=== PATIENT | male | born 1990 | race Caucasian/White ===

== ENCOUNTER 2016-10-18 13:46 | Observation (INO) | payer OTHER ==
--- NOTE | 2016-10-18 14:11 | EDM.PDOC ---
ED HPI GENERAL MEDICAL PROBLEM - General Chief Complaint: Gastrointestinal Problem Stated Complaint: SICK Time Seen by Provider: 10/18/16 14:00 Source of Information: Reports: Patient History Limitations: Reports: No Limitations - History of Present Illness INITIAL COMMENTS - FREE TEXT/NARRATIVE: HISTORY AND PHYSICAL: History of present illness: [Patient comes to the emergency room complaining of diarrhea for the past 4 days and lower abdominal cramping. He returned home from vacation in the [place] on October 09. He was traveling with a large group, of which several others also had loose stools. Theris resolved after a couple of days, but the patient's continuous. He had some blood in his stool this morning. Feels a cramping sensation in his abdomen which she feels would be relieved with having a bowel movement but he has had to try to push to pass any stools for the past day. Denies fever and chills. Has a mild headache. Decreased appetite. No nausea or vomiting. No difficulty urinating or hematuria. No muscle or joint aches or pains. No chest pain shortness of breath or difficulty breathing. No cough. No recent illness or infection. Other than symptoms stated above he is feeling well. He has been afebrile. Is having pain with passing stools. Has been having a sensation of needing to defecate and has been trying to force out stool. This is causing lower abdominal pain. Does not take any medications regularly. Is otherwise well.] Review of systems: As per history of present illness and below otherwise all systems reviewed and negative. Past medical history: As per history of present illness and as reviewed below otherwise noncontributory. Surgical history: As per history of present illness and as reviewed below otherwise noncontributory. Social history: No reported history of drug or alcohol abuse. Family history: As per history of present illness and as reviewed below otherwise noncontributory. Physical exam: HEENT: Atraumatic, normocephalic. Oral mucous membranes moist. Throat clear. neck supple, nontender, no lymphadenopathy. Lungs: Clear to auscultation, breath sounds equal bilaterally. Heart: S1S2, regular rate and rhythm. Abdomen: Bowel sounds are normoactive throughout. Abdomen is soft and nondistended. Tender over his entire lower quadrant. Negative for masses guarding or rebound. Negative for costovertebral tenderness. Pelvis: Stable nontender. Genitourinary: Deferred. Rectal: Normal appearing sphincter, normal tone, no hemorrhoids. Guaiac- negative. No stool in colon. Extremities: Atraumatic. No cyanosis or edema to her lower legs. Neurovascular unremarkable. Neuro: Awake, alert, oriented. Motor and sensory unremarkable throughout. Exam nonfocal. Diagnostics: [CBC, CMP, UA, stool cultures, WBC's stool, C. difficile, amylase, lipase, Giardia, CT abdomen and pelvis with contrast] Therapeutics: [Cipro 400 mg IV, Dilaudid 1 mg IV 2, Zofran 4 mg IV, Flagyl 500 mg IV, 2 L normal saline at] Impression: [Colitis Abdominal pain] Plan: [Discussed with patient that CT abdomen and pelvis shows a mild colitis. Discussed the option of inpatient observation for IV fluids, continued pain management and IV antibiotics or discharged home with oral antibiotics. The patient requests hospital observation due to continued pain. This is reviewed with Dr. Henry Sen who agrees to accept patient for observation.] Definitive disposition and diagnosis as appropriate pending reevaluation and review of above. abdominal area Pain Score (Numeric/FACES): 5 - Related Data Allergies Allergy/AdvReac Type Severity Reaction Status Date / Time Penicillins Allergy Burning Verified 10/18/16 13:56 Home Meds: Home Meds oxyCODONE HCl/Acetaminophen [Percocet 5-325 mg Tablet] 1 each PO Q6HR #20 tablet 10/28/15 [Rx] Past Medical History HEENT History: Reports: None Cardiovascular History: Reports: None Respiratory History: Reports: None Gastrointestinal History: Reports: None Genitourinary History: Reports: None Musculoskeletal History: Reports: Back Pain, Chronic Neurological History: Reports: None Psychiatric History: Reports: None Endocrine/Metabolic History: Reports: None Hematologic History: Reports: None Immunologic History: Reports: None Oncologic (Cancer) History: Reports: None Dermatologic History: Reports: None - Infectious Disease History Infectious Disease History: Reports: None - Past Surgical History Head Surgeries/Procedures: Reports: None Musculoskeletal Surgical History: Reports: Other (See Below) Other Musculoskeletal Surgeries/Procedures:: back surgery. surgery to bilateral foot Social & Family History - Family History Family Medical History: Noncontributory - Tobacco Use Smoking Status *Q: Never Smoker - Caffeine Use Caffeine Use: Reports: Coffee - Alcohol Use Days Per Week of Alcohol Use: 2 Number of Drinks Per Day: 4 Total Drinks Per Week: 8 - Recreational Drug Use Recreational Drug Use: No ED ROS GENERAL - Review of Systems Review Of Systems: ROS reveals no pertinent complaints other than HPI. ED EXAM, GI/ABD - Physical Exam Exam: See Below Course - Vital Signs Last Recorded V/S: Last Vital Signs Temp 97.3 F 10/18/16 18:15 Pulse 64 10/18/16 18:15 Resp 18 10/18/16 18:15 BP 135/67 10/18/16 18:15 Pulse Ox 96 10/18/16 18:15 - Orders/Labs/Meds Orders: Active Orders 24 hr Category Date Time Status Abdomen Pelvis w Cont [CT] Stat Exams 10/18/16 15:56 Taken CULTURE STOOL + CAMPY+SHIGATOX [RM] Stat Lab 10/18/16 16:00 Results GIARDIA ANTIGEN BY IMMUNOASSAY [MREF] Stat Lab 10/18/16 15:59 Ordered Medication Orders Ciprofloxacin/Dextrose 400 mg/ (Premix) 200 mls @ 200 mls/hr IV Q12H JOSIE Last Admin: 10/18/16 18:50 Dose: 200 mls/hr Metronidazole 500 mg/ Premix 100 mls @ 100 mls/hr IV ONETIME ONE Stop: 10/18/16 19:23 Sodium Chloride (Normal Saline) 1,000 mls @ 999 mls/hr IV STAT ONE Stop: 10/18/16 19:25 Last Admin: 10/18/16 18:47 Dose: 999 mls/hr Labs: Laboratory Tests 10/18/16 10/18/16 10/18/16 Range/Units 14:12 14:12 14:12 WBC 7.84 (4.0-11.0) K/uL RBC 5.44 (4.50-5.90) M/uL Hgb 16.2 (13.0-17.0) g/dL Hct 46.4 (38.0-50.0) % MCV 85.3 (80.0-98.0) fL MCH 29.8 (27.0-32.0) pg MCHC 34.9 (31.0-37.0) g/dL RDW Std Deviation 42.6 (28.0-62.0) fl RDW Coeff of Nakia 14 (11.0-15.0) % Plt Count 177 (150-400) K/uL MPV 11.00 (7.40-12.00) fL Add Manual Diff YES Neutrophils % (Manual) 52 (48.0-80.0) % Band Neutrophils % 12 % Lymphocytes % (Manual) 23 (16.0-40.0) % Monocytes % (Manual) 12 (0.0-15.0) % Eosinophils % (Manual) 1 (0.0-7.0) % Nucleated RBC % 0.0 /100WBC Absolute Seg Neuts 4.1 Band Neutrophils # 0.9 Lymphocytes # (Manual) 1.8 Monocytes # (Manual) 0.9 Eosinophils # (Manual) 0.1 Nucleated RBCs # 0 K/uL Sodium 138 (136-146) mmol/L Potassium 4.4 (3.5-5.1) mmol/L Chloride 105 (98-110) mmol/L Carbon Dioxide 23 (21-31) mmol/L BUN 12 (6.0-23.0) mg/dL Creatinine 0.9 (0.6-1.5) mg/dL Est Cr Clr Drug Dosing TNP Estimated GFR (MDRD) > 60.0 ml/min Glucose 99 (60-110) mg/dL Calcium 9.6 (8.8-10.8) mg/dL Total Bilirubin 0.3 (0.1-1.5) mg/dL AST 206 H (5-40) IU/L ALT 150 H (8-54) IU/L Alkaline Phosphatase 49 (40-150) Total Protein 7.4 (6.0-8.0) g/dL Albumin 4.3 (3.5-5.0) g/dL Globulin 3.1 (2.0-3.5) g/dL Albumin/Globulin Ratio 1.4 (1.3-2.8) Amylase 30 (10-90) U/L Lipase < 9 (7-80) U/L Urine Color Urine Appearance Urine pH (5.0-8.0) Ur Specific [place] (1.001-1.035) Urine Protein (NEGATIVE) mg/dL Urine Glucose (UA) (NEGATIVE) mg/dL Urine Ketones (NEGATIVE) mg/dL Urine Occult Blood (NEGATIVE) Urine Nitrite (NEGATIVE) Urine Bilirubin (NEGATIVE) Urine Ictotest Urine Urobilinogen (<2.0) EU/dL Ur Leukocyte Esterase (NEGATIVE) Urine RBC (0-2/HPF) Urine WBC (0-5/HPF) Ur Epithelial Cells (NONE-FEW) Urine Bacteria (NEGATIVE) 10/18/16 Range/Units 14:30 WBC (4.0-11.0) K/uL RBC (4.50-5.90) M/uL Hgb (13.0-17.0) g/dL Hct (38.0-50.0) % MCV (80.0-98.0) fL MCH (27.0-32.0) pg MCHC (31.0-37.0) g/dL RDW Std Deviation (28.0-62.0) fl RDW Coeff of Nakia (11.0-15.0) % Plt Count (150-400) K/uL MPV (7.40-12.00) fL Add Manual Diff Neutrophils % (Manual) (48.0-80.0) % Band Neutrophils % % Lymphocytes % (Manual) (16.0-40.0) % Monocytes % (Manual) (0.0-15.0) % Eosinophils % (Manual) (0.0-7.0) % Nucleated RBC % /100WBC Absolute Seg Neuts Band Neutrophils # Lymphocytes # (Manual) Monocytes # (Manual) Eosinophils # (Manual) Nucleated RBCs # K/uL Sodium (136-146) mmol/L Potassium (3.5-5.1) mmol/L Chloride (98-110) mmol/L Carbon Dioxide (21-31) mmol/L BUN (6.0-23.0) mg/dL Creatinine (0.6-1.5) mg/dL Est Cr Clr Drug Dosing Estimated GFR (MDRD) ml/min Glucose (60-110) mg/dL Calcium (8.8-10.8) mg/dL Total Bilirubin (0.1-1.5) mg/dL AST (5-40) IU/L ALT (8-54) IU/L Alkaline Phosphatase (40-150) Total Protein (6.0-8.0) g/dL Albumin (3.5-5.0) g/dL Globulin (2.0-3.5) g/dL Albumin/Globulin Ratio (1.3-2.8) Amylase (10-90) U/L Lipase (7-80) U/L Urine Color YELLOW Urine Appearance CLEAR Urine pH 7.0 (5.0-8.0) Ur Specific [place] 1.015 (1.001-1.035) Urine Protein 30 (NEGATIVE) mg/dL Urine Glucose (UA) NEGATIVE (NEGATIVE) mg/dL Urine Ketones NEGATIVE (NEGATIVE) mg/dL Urine Occult Blood NEGATIVE (NEGATIVE) Urine Nitrite NEGATIVE (NEGATIVE) Urine Bilirubin SMALL H (NEGATIVE) Urine Ictotest NEGATIVE Urine Urobilinogen 0.2 (<2.0) EU/dL Ur Leukocyte Esterase NEGATIVE (NEGATIVE) Urine RBC 0-1 (0-2/HPF) Urine WBC NONE SEEN (0-5/HPF) Ur Epithelial Cells RARE (NONE-FEW) Urine Bacteria FEW (NEGATIVE) Meds: Medications Generic Name Dose Route Start Last Admin Trade Name Sada PRN Reason Stop Dose Admin Ciprofloxacin/Dextrose 400 mg/ 200 mls @ 200 mls/hr 10/18/16 18:30 10/18/16 18:50 Premix IV 200 mls/hr Q12H JOSIE Administration Metronidazole 500 mg/ Premix 100 mls @ 100 mls/hr 10/18/16 18:24 IV 10/18/16 19:23 ONETIME ONE Sodium Chloride 1,000 mls @ 999 mls/hr 10/18/16 18:25 10/18/16 18:47 Normal Saline IV 10/18/16 19:25 999 mls/hr STAT ONE Administration Discontinued Medications Generic Name Dose Route Start Last Admin Trade Name Sada PRN Reason Stop Dose Admin Hydromorphone HCl 1 mg 10/18/16 15:55 10/18/16 16:10 Dilaudid IV 10/18/16 15:56 1 mg ONETIME ONE Administration Hydromorphone HCl 1 mg 10/18/16 18:25 10/18/16 18:48 Dilaudid IV 10/18/16 18:26 1 mg ONETIME ONE Administration Sodium Chloride 1,000 mls @ 999 mls/hr 10/18/16 14:50 10/18/16 15:02 Normal Saline IV 10/18/16 15:50 999 mls/hr STAT ONE Administration Sodium Chloride 1,000 mls @ 999 mls/hr 10/18/16 15:55 10/18/16 16:11 Normal Saline IV 10/18/16 16:55 999 mls/hr STAT ONE Administration Iopamidol 100 ml 10/18/16 17:49 10/18/16 17:50 Isovue Multipack-370 (76%) IVPUSH 10/18/16 17:50 100 ml ONETIME STA Administration Ondansetron HCl 4 mg 10/18/16 15:55 10/18/16 16:11 Zofran IVPUSH 10/18/16 15:56 4 mg ONETIME ONE Administration Departure - Departure Time of Disposition: 18:15 Disposition: Home, Self-Care 01 Condition: Good Clinical Impression: Colitis - Discharge Information - My Orders Last 24 Hours: My Active Orders 10/18/16 15:56 Abdomen Pelvis w Cont [CT] Stat 10/18/16 15:59 GIARDIA ANTIGEN BY IMMUNOASSAY [MREF] Stat 10/18/16 16:00 CULTURE STOOL + CAMPY+SHIGATOX [RM] Stat - Assessment/Plan Last 24 Hours: My Active Orders 10/18/16 15:56 Abdomen Pelvis w Cont [CT] Stat 10/18/16 15:59 GIARDIA ANTIGEN BY IMMUNOASSAY [MREF] Stat 10/18/16 16:00 CULTURE STOOL + CAMPY+SHIGATOX [RM] Stat
[2016-10-18 14:37] LABS: CHLORIDE,CL 105 mmol/L (98-110); SODIUM,NA 138 mmol/L (136-146)
[2016-10-18] MEDS ORDERED: Sodium Chloride 0.9% 1,000 ML IV ONE ×3 (14:50→18:25)
[2016-10-18] MEDS ORDERED: HYDROmorphone 1 MG/ML Syringe IV ONE ×2 (15:55→18:25)
[2016-10-18] MEDS ORDERED: Ondansetron 4 MG/2 ML SDV IVPUSH ONE (15:55)
[2016-10-18] MEDS ORDERED: Iopamidol 755 MG/ML 500 ML Multipack Bottle IVPUSH STA (17:49)
[2016-10-18] MEDS ORDERED: metroNIDAZOLE/Normal Saline 500 MG in Premix Bag 1 BAG IV ONE (18:24)
[2016-10-18] MEDS: Ciprofloxacin in D5W 400 MG in Premix Bag 1 BAG IV SCH ×2 (18:50)
[2016-10-18] MEDS ORDERED: Famotidine 20 MG/2 ML SDV IVPUSH ONE (20:21)
--- NOTE | 2016-10-18 20:26 | PCM.HP ---
H&P History of Present Illness - General Admit Problem/Dx: Admission Diagnosis/Problem Admission Diagnosis/Problem Abdominal pain - History of Present Illness Initial Comments - Free Text/Narative: 25 yo male who had recent travel in [place]. His fellow travelers all developed abdominal cramping and diarrhea on the return to the [place]. However his symptoms have persisted and he reported severe abdominal cramping and blood diarrhea today. He was evaluated in the ED and note to have mild colitis on CT scan. abdominal area Pain Score (Numeric/FACES): 5 - Related Data Allergies/Adverse Reactions: Allergies Allergy/AdvReac Type Severity Reaction Status Date / Time Penicillins Allergy Burning Verified 10/18/16 13:56 Home Medications: Home Meds oxyCODONE HCl/Acetaminophen [Percocet 5-325 mg Tablet] 1 each PO Q6HR #20 tablet 10/28/15 [Rx] Past Medical History HEENT History: Reports: None Cardiovascular History: Reports: None Respiratory History: Reports: None Gastrointestinal History: Reports: None Genitourinary History: Reports: None Musculoskeletal History: Reports: Back Pain, Chronic Other Musculoskeletal History: 3 herniated discs and 1 bulging Neurological History: Reports: None Psychiatric History: Reports: None Endocrine/Metabolic History: Reports: None Hematologic History: Reports: None Immunologic History: Reports: None Oncologic (Cancer) History: Reports: None Dermatologic History: Reports: None - Infectious Disease History Infectious Disease History: Reports: None - Past Surgical History Head Surgeries/Procedures: Reports: None Musculoskeletal Surgical History: Reports: Other (See Below) Other Musculoskeletal Surgeries/Procedures:: back surgery. surgery to bilateral foot Social & Family History - Family History Family Medical History: Noncontributory Cardiac: Reports: CAD, [place], Other (See Below) Other Cardiac Family History: steven had triple bypass recently Respiratory: Reports: None Musculoskeletal: Reports: Connective Tissue Disease, Other (See Below) Other Musculoskeletal Family History: mother has Lupus Endocrine/Metabolic: Reports: Diabetes, type II - Tobacco Use Smoking Status *Q: Never Smoker - Caffeine Use Caffeine Use: Reports: Coffee - Alcohol Use Days Per Week of Alcohol Use: 2 Number of Drinks Per Day: 4 Total Drinks Per Week: 8 - Recreational Drug Use Recreational Drug Use: No H&P Review of Systems - Review of Systems: Review Of Systems: ROS reveals no pertinent complaints other than HPI. Exam - Exam Exam: See Below - Vital Signs Vital Signs: Last Vital Signs Temp 37.1 C 10/18/16 20:06 Pulse 63 10/18/16 20:06 Resp 18 10/18/16 20:06 BP 127/68 10/18/16 20:06 Pulse Ox 97 10/18/16 20:06 Weight: 93.6 kg - Exam General: Alert, Oriented, 4 HEENT: Mucosa Moist & [place] Neck: Supple Lungs: Clear to Auscultation, Normal Respiratory Effort Cardiovascular: Regular Rate, Regular Rhythm GI/Abdominal Exam: Normal Bowel Sounds, Soft, Non-Tender, No Organomegaly, No Distention Extremities: Normal Inspection, Normal Range of Motion, Non-Tender, No Pedal Edema, Normal Capillary Refill Skin: Warm, Dry, Intact - Patient Data Result Diagrams: 10/19/16 05:41 10/19/16 05:41 *Q Meaningful Use (ADM) - VTE *Q VTE Criteria *Q: - Stroke *Q Stroke Criteria *Q: - AMI *Q AMI Criteria *Q: Problem List Initiated/Reviewed/Updated: Yes Orders Last 24hrs: Active Orders 24 hr Category Date Time Status Antiembolic Devices [RC] PER UNIT ROUTINE Care 10/18/16 20:20 Ordered Intake and Output [RC] QSHIFT Care 10/18/16 20:19 Ordered Oxygen Therapy [RC] PRN Care 10/18/16 20:19 Ordered Up ad Rukhsana [RC] ASDIRECTED Care 10/18/16 20:19 Ordered VTE/DVT Education [RC] PER UNIT ROUTINE Care 10/18/16 20:19 Ordered Vital Signs [RC] Q4H Care 10/18/16 20:19 Ordered Clear Liquid Diet [DIET] Diet 10/18/16 Breakfast Ordered BASIC METABOLIC PANEL,BMP [CHEM] AM Lab 10/19/16 05:11 Ordered BASIC METABOLIC PANEL,BMP [CHEM] AM Lab 10/20/16 05:11 Ordered CBC WITH AUTO DIFF [HEME] AM Lab 10/19/16 05:11 Ordered CBC WITH AUTO DIFF [HEME] AM Lab 10/20/16 05:11 Ordered COMPREHENSIVE METABOLIC PN,CMP [CHEM] AM Lab 10/19/16 05:11 Ordered Ciprofloxacin in D5W [Cipro in D5W 400 MG/200 ML] 400 Med 10/18/16 18:30 Active mg Premix Bag 1 bag IV Q12H Morphine Med 10/18/16 20:21 Ordered 2 mg IVPUSH Q2H PRN Ondansetron [Zofran] Med 10/18/16 20:19 Ordered 4 mg IVPUSH Q4H PRN Sodium Chloride 0.9% @ 125 MLS/HR (1,000ml) Med 10/18/16 20:30 Ordered Sodium Chloride 0.9% [Normal Saline] 1,000 ml IV ASDIRECTED metroNIDAZOLE/Normal Saline [Flagyl 500 MG in NS 100 ML Med 10/19/16 04:00 Ordered ] 500 mg Premix Bag 1 bag IV Q8H Sequential Compression Device [OM.PC] Per Unit Routine Oth 10/18/16 20:20 Ordered Resuscitation Status Routine Resus Stat 10/18/16 20:19 Ordered Medication Orders Ciprofloxacin/Dextrose 400 mg/ (Premix) 200 mls @ 200 mls/hr IV Q12H JOSIE Last Admin: 10/18/16 18:50 Dose: 200 mls/hr Metronidazole 500 mg/ Premix 100 mls @ 100 mls/hr IV Q8H JOSIE Sodium Chloride (Normal Saline) 1,000 mls @ 125 mls/hr IV ASDIRECTED JOSIE Morphine Sulfate (Morphine) 2 mg IVPUSH Q2H PRN PRN Reason: Pain Ondansetron HCl (Zofran) 4 mg IVPUSH Q4H PRN PRN Reason: Nausea Assessment/Plan Comment:: 25 yo male with mild colitis and travelers diarrhea. Will treat with IV fluids , Ciprofloxacin and flagyl. Stool cultures have been collected.
[2016-10-18] MEDS: Morphine 2 MG/ML Syringe IVPUSH PRN ×2 (21:38→23:38)
[2016-10-18] MEDS: Sodium Chloride 0.9% 1,000 ML IV SCH (23:25)
[2016-10-19] MEDS: metroNIDAZOLE/Normal Saline 500 MG in Premix Bag 1 BAG IV SCH ×3 (03:45→20:16)
[2016-10-19] MEDS: Morphine 2 MG/ML Syringe IVPUSH PRN ×2 (03:57→08:07)
[2016-10-19] MEDS: Ciprofloxacin in D5W 400 MG in Premix Bag 1 BAG IV SCH ×4 (05:42→17:34)
[2016-10-19 06:44] LABS: CHLORIDE,CL 108 mmol/L (98-110); SODIUM,NA 140 mmol/L (136-146)
[2016-10-19] MEDS: Ondansetron 4 MG/2 ML SDV IVPUSH PRN ×2 (08:06→18:50)
[2016-10-19] MEDS: Morphine 4 MG/ML Syringe IVPUSH PRN ×4 (10:18→21:53)
[2016-10-19] MEDS: Sodium Chloride 0.9% 1,000 ML IV SCH ×2 (10:20→17:37)
--- NOTE | 2016-10-19 13:55 | CT ---
EXAM DATE: 10/18/16 PATIENT'S AGE: 25 Patient: KAY PINA Facility: [place], [place] Site . Site : 1990 Study: CT Abdomen/Pelvis [id number] 5:43:18 PM Ordering Physician: Doctor Farfan Final Report: INDICATION: Abdominal pain and diarrhea for 3 days. Bloody stool. TECHNIQUE: Volumetric helical scanning of the abdomen and pelvis was performed with 100 cc of Isovue 370 contrast material IV. Coronal and sagittal reconstructions were obtained. COMPARISON: None. FINDINGS: Mild circumferential wall thickening of the sigmoid colon and rectum is demonstrated, consistent with colitis. No pneumatosis, abscess, free fluid or free air is identified. The bowel is otherwise unremarkable The liver is unremarkable except for a 1 cm focus of mildly decreased attenuation in the right lobe, possibly hemangioma. No bile duct dilation is evident. The spleen, adrenal glands and pancreas are within normal limits. The kidneys are unremarkable. No lymphadenopathy is evident. The prostate is unremarkable The lung bases are clear. The heart is normal in size. IMPRESSION: 1. Mild colitis involving the rectum and sigmoid. No complication. 2. 1 cm low attenuation lesion in the right hepatic lobe, possibly hemangioma. Please note that all CT scans at this facility use dose modulation, iterative reconstruction, and/or weight-based dosing when appropriate to reduce radiation dose to as low as reasonably achievable. Dictated by Christopher Duran MD @ Oct 18 2016 6:00PM (Electronic Signature) Report Signed by Proxy. [facility]
[2016-10-19] MEDS: oxyCODONE 5 MG Tab PO PRN ×3 (14:41→23:58)
--- NOTE | 2016-10-19 17:45 | PCM.PN ---
- Review of Systems Systems Review Comment:: reporting abdominal pain, and has small bloody stool. - Patient Data Vitals - Most Recent: Last Vital Signs Temp 36.7 C 10/19/16 16:00 Pulse 51 L 10/19/16 16:00 Resp 16 10/19/16 16:00 BP 107/50 L 10/19/16 16:00 Pulse Ox 96 10/19/16 16:00 Weight - Most Recent: 93.6 kg I&O - Last 24 Hours: Intake & Output 10/19/16 10/19/16 10/19/16 06:59 14:59 22:59 Intake Total 940 1325 2505 Output Total 1550 2100 Balance -610 1325 405 Lab Results Last 24 Hours: Laboratory Results - last 24 hr 10/19/16 10/19/16 Range/Units 05:41 05:41 WBC 5.89 (4.0-11.0) K/uL RBC 4.58 (4.50-5.90) M/uL Hgb 13.1 (13.0-17.0) g/dL Hct 39.5 (38.0-50.0) % MCV 86.2 (80.0-98.0) fL MCH 28.6 (27.0-32.0) pg MCHC 33.2 (31.0-37.0) g/dL RDW Std Deviation 44.0 (28.0-62.0) fl RDW Coeff of Nakia 14 (11.0-15.0) % Plt Count 162 (150-400) K/uL MPV 10.50 (7.40-12.00) fL Neut % (Auto) 51.5 (48.0-80.0) % Lymph % (Auto) 27.0 (16.0-40.0) % [place] % (Auto) 19.5 H (0.0-15.0) % Eos % (Auto) 1.7 (0.0-7.0) % Baso % (Auto) 0.3 (0.0-1.5) % Neut # (Auto) 3.0 (1.4-5.7) K/uL Lymph # (Auto) 1.6 (0.6-2.4) K/uL [place] # (Auto) 1.2 H (0.0-0.8) K/uL Eos # (Auto) 0.1 (0.0-0.7) K/uL Baso # (Auto) 0.0 (0.0-0.1) K/uL Nucleated RBC % 0.0 /100WBC Nucleated RBCs # 0 K/uL Sodium 140 (136-146) mmol/L Potassium 4.0 (3.5-5.1) mmol/L Chloride 108 (98-110) mmol/L Carbon Dioxide 24 (21-31) mmol/L BUN 9 (6.0-23.0) mg/dL Creatinine 0.8 (0.6-1.5) mg/dL Est Cr Clr Drug Dosing TNP Estimated GFR (MDRD) > 60.0 ml/min Glucose 89 (60-110) mg/dL Calcium 8.7 L (8.8-10.8) mg/dL Total Bilirubin 0.3 (0.1-1.5) mg/dL AST 153 H (5-40) IU/L ALT 117 H (8-54) IU/L Alkaline Phosphatase 38 L (40-150) Total Protein 5.9 L (6.0-8.0) g/dL Albumin 3.6 (3.5-5.0) g/dL Globulin 2.3 (2.0-3.5) g/dL Albumin/Globulin Ratio 1.6 (1.3-2.8) Med Orders - Current: Current Medications Ciprofloxacin/Dextrose 400 mg/ (Premix) 200 mls @ 200 mls/hr IV Q12H [facility] Last Admin: 10/19/16 17:34 Dose: 200 mls/hr Metronidazole 500 mg/ Premix 100 mls @ 100 mls/hr IV Q8H [facility] Last Admin: 10/19/16 11:47 Dose: 100 mls/hr Sodium Chloride (Normal Saline) 1,000 mls @ 125 mls/hr IV ASDIRECTED [facility] Last Admin: 10/19/16 17:37 Dose: 125 mls/hr Morphine Sulfate (Morphine) 4 mg IVPUSH Q3H PRN PRN Reason: Pain Last Admin: 10/19/16 17:33 Dose: 4 mg Ondansetron HCl (Zofran) 4 mg IVPUSH Q4H PRN PRN Reason: Nausea Last Admin: 10/19/16 08:06 Dose: 4 mg Oxycodone HCl (Oxycodone) 5 mg PO Q4H PRN PRN Reason: Pain Last Admin: 10/19/16 14:41 Dose: 5 mg Discontinued Medications Famotidine (Pepcid) 20 mg IVPUSH ONETIME ONE Stop: 10/18/16 20:22 Last Admin: 10/18/16 21:56 Dose: 20 mg Hydromorphone HCl (Dilaudid) 1 mg IV ONETIME ONE Stop: 10/18/16 15:56 Last Admin: 10/18/16 16:10 Dose: 1 mg Hydromorphone HCl (Dilaudid) 1 mg IV ONETIME ONE Stop: 10/18/16 18:26 Last Admin: 10/18/16 18:48 Dose: 1 mg Sodium Chloride (Normal Saline) 1,000 mls @ 999 mls/hr IV STAT ONE Stop: 10/18/16 15:50 Last Admin: 10/18/16 15:02 Dose: 999 mls/hr Sodium Chloride (Normal Saline) 1,000 mls @ 999 mls/hr IV STAT ONE Stop: 10/18/16 16:55 Last Admin: 10/18/16 16:11 Dose: 999 mls/hr Metronidazole 500 mg/ Premix 100 mls @ 100 mls/hr IV ONETIME ONE Stop: 10/18/16 19:23 Last Admin: 10/18/16 20:10 Dose: 100 mls/hr Sodium Chloride (Normal Saline) 1,000 mls @ 999 mls/hr IV STAT ONE Stop: 10/18/16 19:25 Last Admin: 10/18/16 18:47 Dose: 999 mls/hr Iopamidol (Isovue Multipack-370 (76%)) 100 ml IVPUSH ONETIME STA Stop: 10/18/16 17:50 Last Admin: 10/18/16 17:50 Dose: 100 ml Morphine Sulfate (Morphine) 2 mg IVPUSH Q2H PRN PRN Reason: Pain Last Admin: 10/19/16 08:07 Dose: 2 mg Ondansetron HCl (Zofran) 4 mg IVPUSH ONETIME ONE Stop: 10/18/16 15:56 Last Admin: 10/18/16 16:11 Dose: 4 mg - Exam General: Alert, Oriented Lungs: Clear to Auscultation, Normal Respiratory Effort Cardiovascular: Regular Rate, Regular Rhythm GI/Abdominal Exam: Normal Bowel Sounds, Soft, Tender (mild in lower quadrants). No: Guarding, Rigid, Rebound Extremities: No Pedal Edema - Problem List Review Problem List Initiated/Reviewed/Updated: Yes - My Orders Last 24 Hours: My Active Orders 10/18/16 20:19 Intake and Output [RC] QSHIFT Oxygen Therapy [RC] PRN Up ad Rukhsana [RC] ASDIRECTED VTE/DVT Education [RC] PER UNIT ROUTINE Vital Signs [RC] Q4H Ondansetron [Zofran] 4 mg IVPUSH Q4H PRN Resuscitation Status Routine 10/18/16 20:20 Antiembolic Devices [RC] PER UNIT ROUTINE Sequential Compression Device [OM.PC] Per Unit Routine 10/18/16 20:30 Sodium Chloride 0.9% [Normal Saline] 1,000 ml IV ASDIRECTED 10/19/16 04:00 metroNIDAZOLE/Normal Saline [Flagyl 500 MG in NS 100 ML] 500 mg Premix Bag 1 bag IV Q8H 10/20/16 05:11 BASIC METABOLIC PANEL,BMP [CHEM] AM CBC WITH AUTO DIFF [HEME] AM - Plan Plan:: 25 yo male with mild colitis and travelers diarrhea. Will continue IV fluids, and prn morphine for pain. Will continue Ciprofloxacin and Flagyl. Stool cultures have been collected. Discharge pending improvement in abdominal pain.
[2016-10-20] MEDS: Morphine 4 MG/ML Syringe IVPUSH PRN ×5 (03:43→23:01)
[2016-10-20] MEDS: Sodium Chloride 0.9% 1,000 ML IV SCH ×2 (03:47→15:31)
[2016-10-20] MEDS: metroNIDAZOLE/Normal Saline 500 MG in Premix Bag 1 BAG IV SCH ×3 (03:51→20:12)
[2016-10-20] MEDS: oxyCODONE 5 MG Tab PO PRN ×5 (05:48→21:36)
[2016-10-20] MEDS: Ciprofloxacin in D5W 400 MG in Premix Bag 1 BAG IV SCH ×4 (05:49→17:40)
[2016-10-20 06:24] LABS: CHLORIDE,CL 106 mmol/L (98-110); SODIUM,NA 142 mmol/L (136-146)
--- NOTE | 2016-10-20 06:52 | PCM.PN ---
- Review of Systems Systems Review Comment:: patient reports abdominal pain contolled with IV pain medications is anxious about discharge today - Patient Data Vitals - Most Recent: Last Vital Signs Temp 36.9 C 10/20/16 00:00 Pulse 54 L 10/20/16 00:00 Resp 18 10/20/16 00:00 BP 117/44 L 10/20/16 00:00 Pulse Ox 96 10/20/16 00:00 Weight - Most Recent: 93.6 kg I&O - Last 24 Hours: Intake & Output 10/19/16 10/19/16 10/20/16 14:59 22:59 06:59 Intake Total 1325 2605 1000 Output Total 2100 Balance 3914 121 9508 Lab Results Last 24 Hours: Laboratory Results - last 24 hr 10/20/16 10/20/16 Range/Units 05:50 05:50 WBC 5.86 (4.0-11.0) K/uL RBC 4.90 (4.50-5.90) M/uL Hgb 14.0 (13.0-17.0) g/dL Hct 42.9 (38.0-50.0) % MCV 87.6 (80.0-98.0) fL MCH 28.6 (27.0-32.0) pg MCHC 32.6 (31.0-37.0) g/dL RDW Std Deviation 44.5 (28.0-62.0) fl RDW Coeff of Nakia 14 (11.0-15.0) % Plt Count 170 (150-400) K/uL MPV 10.10 (7.40-12.00) fL Neut % (Auto) 51.1 (48.0-80.0) % Lymph % (Auto) 31.7 (16.0-40.0) % Pender % (Auto) 15.0 (0.0-15.0) % Eos % (Auto) 1.9 (0.0-7.0) % Baso % (Auto) 0.3 (0.0-1.5) % Neut # (Auto) 3.0 (1.4-5.7) K/uL Lymph # (Auto) 1.9 (0.6-2.4) K/uL Pender # (Auto) 0.9 H (0.0-0.8) K/uL Eos # (Auto) 0.1 (0.0-0.7) K/uL Baso # (Auto) 0.0 (0.0-0.1) K/uL Nucleated RBC % 0.0 /100WBC Nucleated RBCs # 0 K/uL Sodium 142 (136-146) mmol/L Potassium 4.3 (3.5-5.1) mmol/L Chloride 106 (98-110) mmol/L Carbon Dioxide 29 (21-31) mmol/L BUN 11 (6.0-23.0) mg/dL Creatinine 0.9 (0.6-1.5) mg/dL Est Cr Clr Drug Dosing TNP Estimated GFR (MDRD) > 60.0 ml/min Glucose 90 (60-110) mg/dL Calcium 9.1 (8.8-10.8) mg/dL Med Orders - Current: Current Medications Ciprofloxacin/Dextrose 400 mg/ (Premix) 200 mls @ 200 mls/hr IV Q12H [facility] Last Admin: 10/20/16 05:49 Dose: 200 mls/hr Metronidazole 500 mg/ Premix 100 mls @ 100 mls/hr IV Q8H [facility] Last Admin: 10/20/16 03:51 Dose: 100 mls/hr Sodium Chloride (Normal Saline) 1,000 mls @ 125 mls/hr IV ASDIRECTED [facility] Last Admin: 10/20/16 03:47 Dose: 125 mls/hr Morphine Sulfate (Morphine) 4 mg IVPUSH Q3H PRN PRN Reason: Pain Last Admin: 10/20/16 03:43 Dose: 4 mg Ondansetron HCl (Zofran) 4 mg IVPUSH Q4H PRN PRN Reason: Nausea Last Admin: 10/19/16 18:50 Dose: 4 mg Oxycodone HCl (Oxycodone) 5 mg PO Q4H PRN PRN Reason: Pain Last Admin: 10/20/16 05:48 Dose: 5 mg Discontinued Medications Famotidine (Pepcid) 20 mg IVPUSH ONETIME ONE Stop: 10/18/16 20:22 Last Admin: 10/18/16 21:56 Dose: 20 mg Hydromorphone HCl (Dilaudid) 1 mg IV ONETIME ONE Stop: 10/18/16 15:56 Last Admin: 10/18/16 16:10 Dose: 1 mg Hydromorphone HCl (Dilaudid) 1 mg IV ONETIME ONE Stop: 10/18/16 18:26 Last Admin: 10/18/16 18:48 Dose: 1 mg Sodium Chloride (Normal Saline) 1,000 mls @ 999 mls/hr IV STAT ONE Stop: 10/18/16 15:50 Last Admin: 10/18/16 15:02 Dose: 999 mls/hr Sodium Chloride (Normal Saline) 1,000 mls @ 999 mls/hr IV STAT ONE Stop: 10/18/16 16:55 Last Admin: 10/18/16 16:11 Dose: 999 mls/hr Metronidazole 500 mg/ Premix 100 mls @ 100 mls/hr IV ONETIME ONE Stop: 10/18/16 19:23 Last Admin: 10/18/16 20:10 Dose: 100 mls/hr Sodium Chloride (Normal Saline) 1,000 mls @ 999 mls/hr IV STAT ONE Stop: 10/18/16 19:25 Last Admin: 10/18/16 18:47 Dose: 999 mls/hr Iopamidol (Isovue Multipack-370 (76%)) 100 ml IVPUSH ONETIME STA Stop: 10/18/16 17:50 Last Admin: 10/18/16 17:50 Dose: 100 ml Morphine Sulfate (Morphine) 2 mg IVPUSH Q2H PRN PRN Reason: Pain Last Admin: 10/19/16 08:07 Dose: 2 mg Ondansetron HCl (Zofran) 4 mg IVPUSH ONETIME ONE Stop: 10/18/16 15:56 Last Admin: 10/18/16 16:11 Dose: 4 mg - Exam General: Alert, Oriented Lungs: Clear to Auscultation, Normal Respiratory Effort Cardiovascular: Regular Rate, Regular Rhythm GI/Abdominal Exam: Normal Bowel Sounds, Soft, No Distention, Tender (mild tenderness to deep palpation) Extremities: Normal Inspection, Non-Tender, No Pedal Edema - Problem List Review Problem List Initiated/Reviewed/Updated: Yes - Plan Plan:: 25 yo male with mild colitis and travelers diarrhea. Will continue IV fluids, will switch to PO pain medication. Will continue Ciprofloxacin and Flagyl. Stool cultures have been collected. Anticipate discharge home tomorrow.
[2016-10-21] MEDS: Sodium Chloride 0.9% 1,000 ML IV SCH (01:38)
[2016-10-21] MEDS: oxyCODONE 5 MG Tab PO PRN ×3 (01:39→10:10)
[2016-10-21] MEDS: metroNIDAZOLE/Normal Saline 500 MG in Premix Bag 1 BAG IV SCH (03:15)
[2016-10-21] MEDS: Ciprofloxacin in D5W 400 MG in Premix Bag 1 BAG IV SCH ×2 (05:46)
[2016-10-21 06:12] LABS: CHLORIDE,CL 105 mmol/L (98-110); SODIUM,NA 137 mmol/L (136-146)
[2016-10-21 08:14] VITALS: BP 106/48
--- NOTE | 2016-10-21 10:55 | PCM.DCSUM1 ---
Discharge Summary - Discharge Data Discharge Date: 10/21/16 Discharge Disposition: Home, Self-Care 01 Condition: Good - Patient Summary/Data Hospital Course: Hospital diagnosis Salmonella colitis Hospital course: 25 yo male who presented with abdominal cramping and bloody diarrhea. He was recently traveling in the [place] and most of his travel companions have had same illness. His started once he returned to the [place] after most of his fellow travelers symptoms had resolved. He had a CT scan showing mild colitis of the sigmoid and rectum. He was treated with IV fluids, morphine, ciprofloxacin and Flagyl for four days. His stool cultures were grew out Salmonella. Today he is tolerating an oral diet and agreeable to discharge. He will be discharged on Ciprofloxacin 500mg BID for four more days. He has a follow up appointment at [place] [facility] on October 23. - Patient Instructions Diet: Usual Diet as Tolerated Activity: As Tolerated - Discharge Plan Prescriptions/Med Rec: oxyCODONE 5 mg PO Q6HR PRN #5 tablet PRN Reason: Pain Ciprofloxacin HCl [Cipro] 500 mg PO BID #8 tablet Home Medications: Home Meds oxyCODONE HCl/Acetaminophen [Percocet 5-325 mg Tablet] 1 each PO Q6HR #20 tablet 10/28/15 [Rx] Ciprofloxacin HCl [Cipro] 500 mg PO BID #8 tablet 10/21/16 [Rx] oxyCODONE 5 mg PO Q6HR PRN #5 tablet 10/21/16 [Rx] Referrals: Josselyn Meier NP [Ordering Only Provider] - 10/23/16 10:30 am - Patient Data Vitals - Most Recent: Last Vital Signs Temp 36.7 C 10/21/16 08:00 Pulse 52 L 10/21/16 08:00 Resp 22 H 10/21/16 08:00 BP 106/48 L 10/21/16 08:00 Pulse Ox 95 10/21/16 08:00 Weight - Most Recent: 93.6 kg I&O - Last 24 hours: Intake & Output 10/20/16 10/21/16 10/21/16 22:59 06:59 14:59 Intake Total 1100 2300 Output Total 2600 Balance 1100 -300 Lab Results - Last 24 hrs: Laboratory Results - last 24 hr 10/21/16 10/21/16 Range/Units 05:13 05:13 WBC 5.48 (4.0-11.0) K/uL RBC 4.88 (4.50-5.90) M/uL Hgb 14.0 (13.0-17.0) g/dL Hct 41.4 (38.0-50.0) % MCV 84.8 (80.0-98.0) fL MCH 28.7 (27.0-32.0) pg MCHC 33.8 (31.0-37.0) g/dL RDW Std Deviation 41.5 (28.0-62.0) fl RDW Coeff of Nakia 13 (11.0-15.0) % Plt Count 201 (150-400) K/uL MPV 10.70 (7.40-12.00) fL Neut % (Auto) 52.7 (48.0-80.0) % Lymph % (Auto) 30.3 (16.0-40.0) % [place] % (Auto) 15.1 H (0.0-15.0) % Eos % (Auto) 1.5 (0.0-7.0) % Baso % (Auto) 0.4 (0.0-1.5) % Neut # (Auto) 2.9 (1.4-5.7) K/uL Lymph # (Auto) 1.7 (0.6-2.4) K/uL [place]gs # (Auto) 0.8 (0.0-0.8) K/uL Eos # (Auto) 0.1 (0.0-0.7) K/uL Baso # (Auto) 0.0 (0.0-0.1) K/uL Nucleated RBC % 0.0 /100WBC Nucleated RBCs # 0 K/uL Sodium 137 (136-146) mmol/L Potassium 4.1 (3.5-5.1) mmol/L Chloride 105 (98-110) mmol/L Carbon Dioxide 24 (21-31) mmol/L BUN 11 (6.0-23.0) mg/dL Creatinine 0.9 (0.6-1.5) mg/dL Est Cr Clr Drug Dosing TNP Estimated GFR (MDRD) > 60.0 ml/min Glucose 85 (60-110) mg/dL Calcium 8.7 L (8.8-10.8) mg/dL Total Bilirubin 0.3 (0.1-1.5) mg/dL AST 91 H (5-40) IU/L ALT 103 H (8-54) IU/L Alkaline Phosphatase 43 (40-150) Total Protein 5.9 L (6.0-8.0) g/dL Albumin 3.8 (3.5-5.0) g/dL Globulin 2.1 (2.0-3.5) g/dL Albumin/Globulin Ratio 1.8 (1.3-2.8) Med Orders - Current: Current Medications Ciprofloxacin/Dextrose 400 mg/ (Premix) 200 mls @ 200 mls/hr IV Q12H [facility] Last Admin: 10/21/16 05:46 Dose: 200 mls/hr Metronidazole 500 mg/ Premix 100 mls @ 100 mls/hr IV Q8H [facility] Last Admin: 10/21/16 03:15 Dose: 100 mls/hr Sodium Chloride (Normal Saline) 1,000 mls @ 125 mls/hr IV ASDIRECTED [facility] Last Admin: 10/21/16 01:38 Dose: 125 mls/hr Morphine Sulfate (Morphine) 4 mg IVPUSH Q3H PRN PRN Reason: Pain Last Admin: 10/20/16 23:01 Dose: 4 mg Ondansetron HCl (Zofran) 4 mg IVPUSH Q4H PRN PRN Reason: Nausea Last Admin: 10/19/16 18:50 Dose: 4 mg Oxycodone HCl (Oxycodone) 10 mg PO Q4H PRN PRN Reason: Abdominal Pain Last Admin: 10/21/16 10:10 Dose: 10 mg Discontinued Medications Famotidine (Pepcid) 20 mg IVPUSH ONETIME ONE Stop: 10/18/16 20:22 Last Admin: 10/18/16 21:56 Dose: 20 mg Hydromorphone HCl (Dilaudid) 1 mg IV ONETIME ONE Stop: 10/18/16 15:56 Last Admin: 10/18/16 16:10 Dose: 1 mg Hydromorphone HCl (Dilaudid) 1 mg IV ONETIME ONE Stop: 10/18/16 18:26 Last Admin: 10/18/16 18:48 Dose: 1 mg Sodium Chloride (Normal Saline) 1,000 mls @ 999 mls/hr IV STAT ONE Stop: 10/18/16 15:50 Last Admin: 10/18/16 15:02 Dose: 999 mls/hr Sodium Chloride (Normal Saline) 1,000 mls @ 999 mls/hr IV STAT ONE Stop: 10/18/16 16:55 Last Admin: 10/18/16 16:11 Dose: 999 mls/hr Metronidazole 500 mg/ Premix 100 mls @ 100 mls/hr IV ONETIME ONE Stop: 10/18/16 19:23 Last Admin: 10/18/16 20:10 Dose: 100 mls/hr Sodium Chloride (Normal Saline) 1,000 mls @ 999 mls/hr IV STAT ONE Stop: 10/18/16 19:25 Last Admin: 10/18/16 18:47 Dose: 999 mls/hr Iopamidol (Isovue Multipack-370 (76%)) 100 ml IVPUSH ONETIME STA Stop: 10/18/16 17:50 Last Admin: 10/18/16 17:50 Dose: 100 ml Morphine Sulfate (Morphine) 2 mg IVPUSH Q2H PRN PRN Reason: Pain Last Admin: 10/19/16 08:07 Dose: 2 mg Ondansetron HCl (Zofran) 4 mg IVPUSH ONETIME ONE Stop: 10/18/16 15:56 Last Admin: 10/18/16 16:11 Dose: 4 mg Oxycodone HCl (Oxycodone) 5 mg PO Q4H PRN PRN Reason: Pain Last Admin: 10/20/16 17:41 Dose: 5 mg *Q Meaningful Use (DIS) - VTE *Q VTE Criteria *Q: - Stroke *Q Stroke Criteria *Q: - AMI *Q AMI Criteria *Q:
[2016-10-21] MEDS ORDERED: Pantoprazole 40 MG Tab.CR PO SCH (12:15)
== END 2016-10-21 12:15 | disposition home or self-care (01) ==
LOC: MW.ED 13:46 → MW.MS 18:23
PROVIDERS: ADMIT Internal Medicine; ATTEND Internal Medicine
DX: A04.8 Other specified bacterial intestinal infections (principal); A02.8 Other specified salmonella infections; Z88.0 Allergy status to penicillin; Z98.890 Other specified postprocedural states
CPT/HCPCS: 36415; 74177; 80048; 80053; 81001; 82150; 83630; 83690; 85025; 87046; 87324; 87329; 96361; 96365; 96366; 96367; 96375; 96376; 99285; A9270; G0378; J0744; J1170; J2270; J2405; J7040; Q9967; 87077; 87899; 99283

== ENCOUNTER 2016-10-23 23:38 | Emergency (ER) | payer OTHER ==
[2016-10-23] MEDS ORDERED: Sodium Chloride 0.9% 2,000 ML IV ONE (23:44)
[2016-10-23] MEDS ORDERED: Ondansetron 4 MG/2 ML SDV IVPUSH ONE (23:44)
--- NOTE | 2016-10-23 23:47 | EDM.PDOC ---
ED HPI GENERAL MEDICAL PROBLEM - General Stated Complaint: FEVER Time Seen by Provider: 10/23/16 23:44 - History of Present Illness INITIAL COMMENTS - FREE TEXT/NARRATIVE: HISTORY AND PHYSICAL: History of present illness: Patient 25-year-old white male presents with a concern of dizziness and near syncope he was recently hospitalized 4 days for Salmonella is currently on ciprofloxacin he states he had some abdominal cramping in the bathroom felt weak and then had this near syncopal event. He's had nausea but no vomiting. Denies fever chills Review of systems: As per history of present illness and below otherwise all systems reviewed and negative. Past medical history: As per history of present illness and as reviewed below otherwise noncontributory. Surgical history: As per history of present illness and as reviewed below otherwise noncontributory. Social history: No reported history of drug or alcohol abuse. Family history: As per history of present illness and as reviewed below otherwise noncontributory. Physical exam: HEENT: Atraumatic, normocephalic, pupils reactive, negative for conjunctival pallor or scleral icterus, mucous membranes dry, throat clear, neck supple, nontender, trachea midline. Lungs: Clear to auscultation, breath sounds equal bilaterally, chest nontender. Heart: S1S2, regular, negative for clicks, rubs, or JVD. Abdomen: Soft, nondistended, nontender. Negative for masses or hepatosplenomegaly. Negative for costovertebral tenderness. Pelvis: Stable nontender. Genitourinary: Deferred. Rectal: Deferred. Extremities: Atraumatic, negative for cords or calf pain. Neurovascular unremarkable. Neuro: Awake, alert, oriented. Cranial nerves II through XII unremarkable. Cerebellum unremarkable. Motor and sensory unremarkable throughout. Exam nonfocal. Diagnostics: CBC CMP EKG orthostatics Therapeutics: Normal saline 2 L bolus Zofran 4 mg IV Impression: #1 history of Salmonella #2 near syncope Definitive disposition and diagnosis as appropriate pending reevaluation and review of above. - Related Data Allergies Allergy/AdvReac Type Severity Reaction Status Date / Time Penicillins Allergy Burning Verified 10/23/16 23:45 Home Meds: Home Meds oxyCODONE HCl/Acetaminophen [Percocet 5-325 mg Tablet] 1 each PO Q6HR #20 tablet 10/28/15 [Rx] Ciprofloxacin HCl [Cipro] 500 mg PO BID #8 tablet 10/21/16 [Rx] oxyCODONE 5 mg PO Q6HR PRN #5 tablet 10/21/16 [Rx] Past Medical History HEENT History: Reports: None Cardiovascular History: Reports: None Respiratory History: Reports: None Gastrointestinal History: Reports: None Genitourinary History: Reports: None Musculoskeletal History: Reports: Back Pain, Chronic Other Musculoskeletal History: 3 herniated discs and 1 bulging Neurological History: Reports: None Psychiatric History: Reports: None Endocrine/Metabolic History: Reports: None Hematologic History: Reports: None Immunologic History: Reports: None Oncologic (Cancer) History: Reports: None Dermatologic History: Reports: None - Infectious Disease History Infectious Disease History: Reports: None - Past Surgical History Head Surgeries/Procedures: Reports: None Musculoskeletal Surgical History: Reports: Other (See Below) Other Musculoskeletal Surgeries/Procedures:: back surgery. surgery to bilateral foot Social & Family History - Family History Family Medical History: Noncontributory Cardiac: Reports: CAD, [place], Other (See Below) Other Cardiac Family History: casspa had triple bypass recently Respiratory: Reports: None Musculoskeletal: Reports: Connective Tissue Disease, Other (See Below) Other Musculoskeletal Family History: mother has Lupus Endocrine/Metabolic: Reports: Diabetes, type II - Tobacco Use Smoking Status *Q: Never Smoker - Caffeine Use Caffeine Use: Reports: Coffee - Alcohol Use Days Per Week of Alcohol Use: 2 Number of Drinks Per Day: 4 Total Drinks Per Week: 8 - Recreational Drug Use Recreational Drug Use: No ED ROS GENERAL - Review of Systems Review Of Systems: ROS reveals no pertinent complaints other than HPI. ED EXAM, GENERAL - Physical Exam Exam: See Below (See dictated) Course - Vital Signs Last Recorded V/S: Last Vital Signs Temp 36.6 C 10/23/16 23:46 Pulse 61 10/24/16 00:15 Resp 17 10/24/16 00:15 BP 126/63 10/24/16 00:15 Pulse Ox 95 10/24/16 00:15 Orthostatic Blood Pressure [ 146/88 Standing] Orthostatic Blood Pressure [ 135/76 Sitting] Orthostatic Blood Pressure [ 126/63 Supine] - Orders/Labs/Meds Orders: Active Orders 24 hr Category Date Time Status EKG Documentation Completion [RC] STAT Care 10/23/16 23:44 Active Sodium Chloride 0.9% [Normal Saline] 2,000 ml Med 10/23/16 23:44 Active IV .Bolus Medication Orders Sodium Chloride (Normal Saline) 2,000 mls @ 999 mls/hr IV .Bolus ONE Stop: 10/24/16 01:44 Last Admin: 10/23/16 23:53 Dose: 999 mls/hr Labs: Laboratory Tests 10/24/16 10/24/16 Range/Units 00:01 00:01 WBC 8.01 (4.0-11.0) K/uL RBC 5.49 (4.50-5.90) M/uL Hgb 15.9 (13.0-17.0) g/dL Hct 45.7 (38.0-50.0) % MCV 83.2 (80.0-98.0) fL MCH 29.0 (27.0-32.0) pg MCHC 34.8 (31.0-37.0) g/dL RDW Std Deviation 40.7 (28.0-62.0) fl RDW Coeff of Nakia 14 (11.0-15.0) % Plt Count 273 (150-400) K/uL MPV 10.40 (7.40-12.00) fL Neut % (Auto) 51.9 (48.0-80.0) % Lymph % (Auto) 33.0 (16.0-40.0) % [place]cdowell % (Auto) 12.9 (0.0-15.0) % Eos % (Auto) 1.7 (0.0-7.0) % Baso % (Auto) 0.5 (0.0-1.5) % Neut # (Auto) 4.2 (1.4-5.7) K/uL Lymph # (Auto) 2.6 H (0.6-2.4) K/uL Mcdowell # (Auto) 1.0 H (0.0-0.8) K/uL Eos # (Auto) 0.1 (0.0-0.7) K/uL Baso # (Auto) 0.0 (0.0-0.1) K/uL Nucleated RBC % 0.0 /100WBC Nucleated RBCs # 0 K/uL Sodium 137 (136-146) mmol/L Potassium 3.9 (3.5-5.1) mmol/L Chloride 103 (98-110) mmol/L Carbon Dioxide 24 (21-31) mmol/L BUN 14 (6.0-23.0) mg/dL Creatinine 1.0 (0.6-1.5) mg/dL Est Cr Clr Drug Dosing 131.29 mL/min Estimated GFR (MDRD) > 60.0 ml/min Glucose 124 H (60-110) mg/dL Calcium 9.9 (8.8-10.8) mg/dL Total Bilirubin 0.3 (0.1-1.5) mg/dL AST 50 H (5-40) IU/L ALT 112 H (8-54) IU/L Alkaline Phosphatase 51 (40-150) Total Protein 7.3 (6.0-8.0) g/dL Albumin 4.5 (3.5-5.0) g/dL Globulin 2.8 (2.0-3.5) g/dL Albumin/Globulin Ratio 1.6 (1.3-2.8) Meds: Medications Generic Name Dose Route Start Last Admin Trade Name Freq PRN Reason Stop Dose Admin Sodium Chloride 2,000 mls @ 999 mls/hr 10/23/16 23:44 10/23/16 23:53 Normal Saline IV 10/24/16 01:44 999 mls/hr .Bolus ONE Administration Discontinued Medications Generic Name Dose Route Start Last Admin Trade Name Freq PRN Reason Stop Dose Admin Ondansetron HCl 4 mg 10/23/16 23:44 10/23/16 23:53 Zofran IVPUSH 10/23/16 23:45 4 mg ONETIME ONE Administration Departure - Departure Time of Disposition: 00:39 Disposition: Home, Self-Care 01 Condition: Good Clinical Impression: Salmonellosis, Near syncope, Dehydration - Discharge Information Referrals: PCP,None [Primary Care Provider] - Additional Instructions: The following information is given to patients seen in the emergency department who are being discharged to home. This information is to outline your options for follow-up care. We provide all patients seen in our emergency department with a follow-up referral. The need for follow-up, as well as the timing and circumstances, are variable depending upon the specifics of your emergency department visit. If you don't have a primary care physician on staff, we will provide you with a referral. We always advise you to contact your personal physician following an emergency department visit to inform them of the circumstance of the visit and for follow-up with them and/or the need for any referrals to a consulting specialist. The emergency department will also refer you to a specialist when appropriate. This referral assures that you have the opportunity for followup care with a specialist. All of these measure are taken in an effort to provide you with optimal care, which includes your followup. Under all circumstances we always encourage you to contact your private physician who remains a resource for coordinating your care. When calling for followup care, please make the office aware that this follow-up is from your recent emergency room visit. If for any reason you are refused follow-up, please contact the [facility] emergency department at and asked to speak to the emergency department charge nurse. Continue current medications push fluids follow primary medical doctor 1-2 days return as needed as discussed - My Orders Last 24 Hours: My Active Orders 10/23/16 23:44 EKG Documentation Completion [RC] STAT Sodium Chloride 0.9% [Normal Saline] 2,000 ml IV .Bolus - Assessment/Plan Last 24 Hours: My Active Orders 10/23/16 23:44 EKG Documentation Completion [RC] STAT Sodium Chloride 0.9% [Normal Saline] 2,000 ml IV .Bolus
[2016-10-24 00:35] LABS: CHLORIDE,CL 103 mmol/L (98-110); SODIUM,NA 137 mmol/L (136-146)
[2016-10-24 01:36] VITALS: BP 135/70
== END 2016-10-24 01:37 | disposition home or self-care (01) ==
LOC: MW.ED 23:38
DX: R55 Syncope and collapse (principal); E86.0 Dehydration; A02.0 Salmonella enteritis; E11.9 Type 2 diabetes mellitus without complications; Z88.0 Allergy status to penicillin
CPT/HCPCS: 80053; 85025; 93005; 96361; 96374; 99284; J2405; J7040; 99283

== ENCOUNTER 2017-03-18 12:12 | Day surgery (SDC) | payer OTHER ==
[~2017-03-18 12:12] MED LIST: Betamethasone Acetate/Betamethasone Sod Phosphate 30 MG/5 ML MDV ONE; Iopamidol 408 MG/ML 50 ML SDV ONE; Lidocaine 2% 5 ML SDV ONE; Ropivacaine 0.2% 2 MG/ML 20 ML SDV ONE
[2017-03-18] MEDS ORDERED: Ropivacaine 0.5% 5 MG/ML 30 ML SDV ONE (13:50)
--- NOTE | 2017-03-18 19:24 | OR ---
SURGEON: Fallon Garcia D.O. DATE OF PROCEDURE: 03/18/2017 OR STAFF PRESENT: 1. Wing Blackburn. 2. Carlos Forrester RN. 3. Wing Damon RN. 4. safe technician. WOUND CLASSIFICATION: I. PREOPERATIVE DIAGNOSES: 1. Lumbar degenerative disk disease. 2. Chronic low back pain. POSTOPERATIVE DIAGNOSES: 1. Lumbar degenerative disk disease. 2. Chronic low back pain. PROCEDURE PERFORMED: 1. Interlaminar epidural steroid injection at L4-5. 2. Fluoroscopic guidance for needle placement. 3. Local with oral Valium for sedation. SCREENING QUESTIONS: The patient answered "no" to all of the following questions: 1. Are you allergic to latex? 2. Do you have a bleeding disorder? 3. Do you have any current local or systemic infections? 4. Are you taking any anti-inflammatories or blood thinners? 5. Do you have any joint replacements, heart valve replacements, or a pacemaker? DESCRIPTION OF PROCEDURE: The patient had the procedure thoroughly explained including all possible risks, benefits and alternatives. Consent was signed in my clinic indicating understanding and willingness to proceed. The patient presented to [facility] and was escorted to the dressing room to disrobe and change into a hospital gown. Preoperative vital signs were taken and stable. The patient reported that Valium was taken prior to the procedure. The patient was brought back to the procedure room and placed in the prone position on the procedure room table. A pillow was placed under the hips in order to flatten the lumbar lordosis. The back was prepped with ChloraPrep and sterilely draped. All personnel in the operating room were dressed in appropriate attire including surgical scrubs, head and shoe covers. This was to ensure sterility while in the treatment room. During the time fluoroscopy was in use, all personnel in the operating room wore lead be with thyroid collars. Sterile technique was used throughout the procedure. The patient was awake and conversant throughout the procedure. There was no evidence of infection at the site of needle insertion. Skeletal landmarks were identified under fluoroscopy for the lumbar epidural. Skin was anesthetized with 2% lidocaine with a sterile 27-gauge 1.5 inch needle. Then a 20-gauge Tuohy epidural needle was placed in the epidural space with loss of resistance technique under fluoroscopic guidance. No heme, cerebrospinal fluid, or paresthesias were noted. Isovue-200 contrast dye was injected in 0.2 cubic centimeter increments and seen to outline the epidural space in both AP and lateral views. There was no intravascular flow pattern observed under live fluoroscopy. Then 12 milligrams of Celestone was slowly injected after negative aspiration. The patient tolerated the procedure well. Vital signs were stable during and after the procedure. The staff escorted the patient to the recovery area and the patient was released in stable condition after a brief stay in the recovery room monitored by the nurse. The patient was given both oral and written discharge and follow up instructions with recommendation to follow up given for 2-3 weeks. The patient voiced understanding including understanding of those signs and symptoms that would require emergency care. The patient knows how to contact the office if there are any additional problems or questions in the meantime. PREOPERATIVE PAIN: 4+/10. POSTOPERATIVE PAIN: 2/10. FOLLOWUP: Follow up in the Pain Clinic in 3 weeks. RADHA / SAUL /[id number]
== END 2017-03-18 16:06 | disposition home or self-care (01) ==
LOC: MW.SDS 12:12
PROVIDERS: ATTEND Anesthesiology
DX: G89.29 Other chronic pain (principal); M51.36 Other intervertebral disc degeneration, lumbar region; M51.16 Intervertebral disc disorders with radiculopathy, lumbar region; Z87.891 Personal history of nicotine dependence
CPT/HCPCS: 62323; J0702; J2795; Q9966

== ENCOUNTER 2017-04-12 19:13 | Emergency (ER) | payer OTHER ==
[2017-04-12] MEDS ORDERED: LORazepam 1 MG Tab PO ONE (19:49)
--- NOTE | 2017-04-12 19:49 | EDM.PDOC ---
ED HPI GENERAL MEDICAL PROBLEM - General Chief Complaint: General Stated Complaint: POSSIBLE STROKE Time Seen by Provider: 04/12/17 19:32 Source of Information: Reports: Patient History Limitations: Reports: No Limitations - History of Present Illness INITIAL COMMENTS - FREE TEXT/NARRATIVE: HISTORY AND PHYSICAL: History of present illness: Patient is a 26-year-old male who presents to the emergency room with multiple complaints. 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 He states his head felt " fuzzy and my arms were heavy". After several minutes, he said he started to regain the sensation in his arms and felt comfortable to drive again. Intermittently since that time he has had some sensations of feeling lightheaded and anxious. Reports that he called the [facility] outline and was told to come to the emergency room to be evaluated for stroke. He denies any change in vision, headache, abdominal pain, nausea, vomiting or diarrhea. Denies any recent injury, trauma or accidents. Review of systems: As per history of present illness and below otherwise all systems reviewed and negative. Past medical history: As per history of present illness and as reviewed below otherwise noncontributory. Surgical history: As per history of present illness and as reviewed below otherwise noncontributory. Social history: No reported history of drug or alcohol abuse. Family history: As per history of present illness and as reviewed below otherwise noncontributory. Physical exam: General: Well-developed and well-nourished 26 showed male. Alert and oriented. Nontoxic appearing and in no acute distress, mildly anxious. HEENT: Atraumatic, normocephalic, pupils reactive, negative for conjunctival pallor or scleral icterus, mucous membranes moist, throat clear, neck supple, nontender, trachea midline. Lungs: Clear to auscultation, breath sounds equal bilaterally, chest nontender. Heart: S1S2, regular rate and rhythm Abdomen: Soft, nondistended, nontender. Negative for masses or hepatosplenomegaly. Negative for costovertebral tenderness. Pelvis: Stable nontender. Genitourinary: Deferred. Rectal: Deferred. Extremities: Atraumatic, negative for cords or calf pain. Neurovascular unremarkable. Neuro: Awake, alert, oriented. Cranial nerves II through XII unremarkable. Cerebellum unremarkable. Motor and sensory unremarkable throughout. Exam nonfocal. GCS 15 and NIH 0. Patient does report that he is very anxious and is requesting something for his. We'll give 1 mg of Ativan by mouth. States he has had a history of anxiety and used to take medication for this. Has not taken anything in the last 1-2 years. Chest xray is normal. EKG shows Normal Sinus with HR 79. CBC, CMP, UA, urine drug screen are normal. Head CT shows no evidence of acute findings. Patient states that he is still anxious. We discussed the use of Ativan that he recieved here, will need to follow up with his primary care provider to get further medications. Voices understanding and is agreeable to plan of care. Diagnostics: CBC, CMP, EKG, UA, drug screen, head CT without contrast Therapeutics: Ativan by mouth Impression: 1. Paresthesia 2. Anxiety Plan: 1. Your labs, head CT, chest x-ray and EKG were normal. As we discussed please monitor your symptoms. Follow-up with her primary care provider for further evaluation and management of these symptoms. 2. Today you are given Ativan for your anxiety. If you feel that this has helped her symptoms please talk with her primary care provider for further prescription if desired. 3. Get plenty of rest. Drink plenty of water and eat a well balanced diet. Avoid any caffeinated beverages the next 24-48 hours. 4. Return to the ED as needed and as discussed. Definitive disposition and diagnosis as appropriate pending reevaluation and review of above. Onset: Today head Pain Score (Numeric/FACES): 2 - Related Data Allergies Allergy/AdvReac Type Severity Reaction Status Date / Time Penicillins Allergy Burning Verified 04/12/17 19:28 Home Meds: Home Meds Dextroamphetamine/Amphetamine [Adderall] 30 mg PO DAILY 04/12/17 [History] Past Medical History HEENT History: Reports: None Cardiovascular History: Reports: None Respiratory History: Reports: None Gastrointestinal History: Reports: None Other Gastrointestinal History: Colitis Genitourinary History: Reports: None Musculoskeletal History: Reports: Back Pain, Chronic Other Musculoskeletal History: 3 herniated discs and 1 bulging Neurological History: Reports: None Psychiatric History: Reports: ADHD Endocrine/Metabolic History: Reports: None Hematologic History: Reports: None Immunologic History: Reports: None Oncologic (Cancer) History: Reports: None Dermatologic History: Reports: None - Infectious Disease History Infectious Disease History: Reports: None - Past Surgical History Head Surgeries/Procedures: Reports: None Musculoskeletal Surgical History: Reports: Other (See Below) Other Musculoskeletal Surgeries/Procedures:: back surgery. surgery to bilateral foot Social & Family History - Family History Family Medical History: Noncontributory Cardiac: Reports: CAD, SC, Other (See Below) Other Cardiac Family History: casspa had triple bypass recently Respiratory: Reports: None Musculoskeletal: Reports: Connective Tissue Disease, Other (See Below) Other Musculoskeletal Family History: mother has Lupus Endocrine/Metabolic: Reports: Diabetes, type II - Tobacco Use Smoking Status *Q: Never Smoker - Caffeine Use Caffeine Use: Reports: Coffee - Alcohol Use Days Per Week of Alcohol Use: 2 Number of Drinks Per Day: 4 Total Drinks Per Week: 8 - Recreational Drug Use Recreational Drug Use: No ED ROS GENERAL - Review of Systems Review Of Systems: ROS reveals no pertinent complaints other than HPI. ED EXAM, GENERAL - Physical Exam Exam: See Below (See dictation) Course - Vital Signs Last Recorded V/S: Last Vital Signs Temp 98.9 F 04/12/17 19:13 Pulse 82 04/12/17 19:13 Resp 18 04/12/17 19:13 BP 135/87 04/12/17 19:13 Pulse Ox 97 04/12/17 19:13 - Orders/Labs/Meds Orders: Active Orders 24 hr Category Date Time Status EKG Documentation Completion [RC] STAT Care 04/12/17 19:32 Active Chest 1V Frontal [CR] Stat Exams 04/12/17 19:32 Taken Head wo Cont [CT] Stat Exams 04/12/17 19:32 Taken Labs: Laboratory Tests 04/12/17 04/12/17 04/12/17 Range/Units 19:42 19:42 19:42 WBC 7.09 (4.0-11.0) K/uL RBC 5.32 (4.50-5.90) M/uL Hgb 15.6 (13.0-17.0) g/dL Hct 44.4 (38.0-50.0) % MCV 83.5 (80.0-98.0) fL MCH 29.3 (27.0-32.0) pg MCHC 35.1 (31.0-37.0) g/dL RDW Std Deviation 39.2 (28.0-62.0) fl RDW Coeff of [place] 13 (11.0-15.0) % Plt Count 175 (150-400) K/uL MPV 10.80 (7.40-12.00) fL Neut % (Auto) 65.0 (48.0-80.0) % Lymph % (Auto) 25.7 (16.0-40.0) % [place] % (Auto) 8.5 (0.0-15.0) % Eos % (Auto) 0.7 (0.0-7.0) % Baso % (Auto) 0.1 (0.0-1.5) % Neut # (Auto) 4.6 (1.4-5.7) K/uL Lymph # (Auto) 1.8 (0.6-2.4) K/uL Eaton # (Auto) 0.6 (0.0-0.8) K/uL Eos # (Auto) 0.1 (0.0-0.7) K/uL Baso # (Auto) 0.0 (0.0-0.1) K/uL Nucleated RBC % 0.0 /100WBC Nucleated RBCs # 0 K/uL INR 1.01 Sodium 139 (136-146) mmol/L Potassium 3.6 (3.5-5.1) mmol/L Chloride 104 (98-110) mmol/L Carbon Dioxide 25 (21-31) mmol/L BUN 12 (6.0-23.0) mg/dL Creatinine 0.9 (0.6-1.5) mg/dL Est Cr Clr Drug Dosing 144.61 mL/min Estimated GFR (MDRD) > 60.0 ml/min Glucose 121 H (60-110) mg/dL Calcium 9.5 (8.8-10.8) mg/dL Total Bilirubin 0.5 (0.1-1.5) mg/dL AST 25 (5-40) IU/L ALT 36 (8-54) IU/L Alkaline Phosphatase 60 (40-150) Total Protein 6.8 (6.0-8.0) g/dL Albumin 4.4 (3.5-5.0) g/dL Globulin 2.4 (2.0-3.5) g/dL Albumin/Globulin Ratio 1.8 (1.3-2.8) TSH 3rd Generation (0.47-5.0) uIU/mL Urine Color Urine Appearance Urine pH (5.0-8.0) Ur Specific [place] (1.001-1.035) Urine Protein (NEGATIVE) mg/dL Urine Glucose (UA) (NEGATIVE) mg/dL Urine Ketones (NEGATIVE) mg/dL Urine Occult Blood (NEGATIVE) Urine Nitrite (NEGATIVE) Urine Bilirubin (NEGATIVE) Urine Urobilinogen (<2.0) EU/dL Ur Leukocyte Esterase (NEGATIVE) Urine RBC (0-2/HPF) Urine WBC (0-5/HPF) Ur Epithelial Cells (NONE-FEW) Urine Bacteria (NEGATIVE) Urine Opiates Screen (NEGATIVE) Ur Oxycodone Screen (NEGATIVE) Urine Methadone Screen (NEGATIVE) Ur Barbiturates Screen (NEGATIVE) Ur Phencyclidine Scrn (NEGATIVE) Ur Amphetamine Screen (NEGATIVE) U Methamphetamines Scrn (NEGATIVE) U Benzodiazepines Scrn (NEGATIVE) U Cocaine Metab Screen (NEGATIVE) U Marijuana (THC) Screen (NEGATIVE) 04/12/17 04/12/17 04/12/17 Range/Units 19:45 19:47 19:49 WBC (4.0-11.0) K/uL RBC (4.50-5.90) M/uL Hgb (13.0-17.0) g/dL Hct (38.0-50.0) % MCV (80.0-98.0) fL MCH (27.0-32.0) pg MCHC (31.0-37.0) g/dL RDW Std Deviation (28.0-62.0) fl RDW Coeff of [place] (11.0-15.0) % Plt Count (150-400) K/uL MPV (7.40-12.00) fL Neut % (Auto) (48.0-80.0) % Lymph % (Auto) (16.0-40.0) % [place]aton % (Auto) (0.0-15.0) % Eos % (Auto) (0.0-7.0) % Baso % (Auto) (0.0-1.5) % Neut # (Auto) (1.4-5.7) K/uL Lymph # (Auto) (0.6-2.4) K/uL [place] # (Auto) (0.0-0.8) K/uL Eos # (Auto) (0.0-0.7) K/uL Baso # (Auto) (0.0-0.1) K/uL Nucleated RBC % /100WBC Nucleated RBCs # K/uL INR Sodium (136-146) mmol/L Potassium (3.5-5.1) mmol/L Chloride (98-110) mmol/L Carbon Dioxide (21-31) mmol/L BUN (6.0-23.0) mg/dL Creatinine (0.6-1.5) mg/dL Est Cr Clr Drug Dosing mL/min Estimated GFR (MDRD) ml/min Glucose (60-110) mg/dL Calcium (8.8-10.8) mg/dL Total Bilirubin (0.1-1.5) mg/dL AST (5-40) IU/L ALT (8-54) IU/L Alkaline Phosphatase (40-150) Total Protein (6.0-8.0) g/dL Albumin (3.5-5.0) g/dL Globulin (2.0-3.5) g/dL Albumin/Globulin Ratio (1.3-2.8) TSH 3rd Generation 1.24 (0.47-5.0) uIU/mL Urine Color YELLOW Urine Appearance CLEAR Urine pH 6.5 (5.0-8.0) Ur Specific [place] <= 1.005 (1.001-1.035) Urine Protein NEGATIVE (NEGATIVE) mg/dL Urine Glucose (UA) NEGATIVE (NEGATIVE) mg/dL Urine Ketones NEGATIVE (NEGATIVE) mg/dL Urine Occult Blood NEGATIVE (NEGATIVE) Urine Nitrite NEGATIVE (NEGATIVE) Urine Bilirubin NEGATIVE (NEGATIVE) Urine Urobilinogen 0.2 (<2.0) EU/dL Ur Leukocyte Esterase NEGATIVE (NEGATIVE) Urine RBC 0-1 (0-2/HPF) Urine WBC 0-1 (0-5/HPF) Ur Epithelial Cells RARE (NONE-FEW) Urine Bacteria RARE (NEGATIVE) Urine Opiates Screen NEGATIVE (NEGATIVE) Ur Oxycodone Screen NEGATIVE (NEGATIVE) Urine Methadone Screen NEGATIVE (NEGATIVE) Ur Barbiturates Screen NEGATIVE (NEGATIVE) Ur Phencyclidine Scrn NEGATIVE (NEGATIVE) Ur Amphetamine Screen NEGATIVE (NEGATIVE) U Methamphetamines Scrn NEGATIVE (NEGATIVE) U Benzodiazepines Scrn NEGATIVE (NEGATIVE) U Cocaine Metab Screen NEGATIVE (NEGATIVE) U Marijuana (THC) Screen NEGATIVE (NEGATIVE) Meds: Medications Discontinued Medications Generic Name Dose Route Start Last Admin Trade Name Sada PRN Reason Stop Dose Admin Lorazepam 1 mg 04/12/17 19:49 04/12/17 19:53 Ativan PO 04/12/17 19:50 1 mg ONETIME ONE Administration Departure - Departure Time of Disposition: 20:54 Disposition: Home, Self-Care 01 Clinical Impression: Anxiety, Paresthesia - Discharge Information Referrals: PCP,Unknown [Primary Care Provider] - Forms: ED Department Discharge Additional Instructions: My general discharge The following information is given to patients seen in the emergency department who are being discharged to home. This information is to outline your options for follow-up care. We provide all patients seen in our emergency department with a follow-up referral. The need for follow-up, as well as the timing and circumstances, are variable depending upon the specifics of your emergency department visit. If you don't have a primary care physician on staff, we will provide you with a referral. We always advise you to contact your personal physician following an emergency department visit to inform them of the circumstance of the visit and for follow-up with them and/or the need for any referrals to a consulting specialist. The emergency department will also refer you to a specialist when appropriate. This referral assures that you have the opportunity for follow-up care with a specialist. All of these measure are taken in an effort to provide you with optimal care, which includes your follow-up. Under all circumstances we always encourage you to contact your private physician who remains a resource for coordinating your care. When calling for follow-up care, please make the office aware that this follow-up is from your recent emergency room visit. If for any reason you are refused follow-up, please contact the [facility] Emergency Department at and asked to speak to the emergency department charge nurse. [facility] Primary Care [address] [place] [id number] 1. Your labs, head CT, chest x-ray and EKG were normal. As we discussed please monitor your symptoms. Follow-up with her primary care provider for further evaluation and management of these symptoms. 2. Today you are given Ativan for your anxiety. If you feel that this has helped her symptoms please talk with her primary care provider for further prescription if desired. 3. Get plenty of rest. Drink plenty of water and eat a well balanced diet. Avoid any caffeinated beverages the next 24-48 hours. 4. Return to the ED as needed and as discussed. - My Orders Last 24 Hours: My Active Orders 04/12/17 19:32 EKG Documentation Completion [RC] STAT Chest 1V Frontal [CR] Stat Head wo Cont [CT] Stat - Assessment/Plan Last 24 Hours: My Active Orders 04/12/17 19:32 EKG Documentation Completion [RC] STAT Chest 1V Frontal [CR] Stat Head wo Cont [CT] Stat
[2017-04-12 20:12] LABS: CHLORIDE,CL 104 mmol/L (98-110); SODIUM,NA 139 mmol/L (136-146)
[2017-04-12 21:04] VITALS: BP 123/80
--- NOTE | 2017-04-13 15:11 | CR ---
EXAM DATE: 04/12/17 PATIENT'S AGE: 26 Patient: KAY PINA Facility: [place], [place] Site . Site : 1990 Study: XRay Chest [id number] 8:05:43 PM Ordering Physician: Doctor Farfan Final Report: INDICATION: confusion TECHNIQUE: Chest 1 view COMPARISON: None FINDINGS: Cardiovascular and mediastinum: Heart size and vasculature are normal in caliber and appearance. Mediastinum is within normal limits. Lungs and pleural space: No focal consolidation. No sign of pleural effusion. No pneumothorax. Bones and soft tissues: No significant findings. IMPRESSION: No acute cardiopulmonary disease Dictated by Alexis Ingram MD @ 04/12/2017 8:11:54 PM Dictated by: Alexis Ingram MD @ 04/12/2017 20:12:02 (Electronic Signature) Report Signed by Proxy. KAY
--- NOTE | 2017-04-13 15:12 | CT ---
EXAM DATE: 04/12/17 PATIENT'S AGE: 26 Patient: KAY PINA Facility: [place], [place] Site . Site : 1990 Study: CT Head [id number] 8:14:16 PM Ordering Physician: Doctor Farfan Final Report: HISTORY: Confusion today, altered mental status. TECHNIQUE: Head was scanned in axial plane at 3 mm intervals without IV contrast. Reconstructed bone windows obtained as well as sagittal and coronal reconstructions. FINDINGS: The visualized paranasal sinuses and mastoid air cells are well aerated. The calvarium is intact. The ventricles and sulci are normal size, shape and position. No intra-axial mass, edema or midline shift is identified. No extra- axial fluid collections are seen. Salas-white differentiation is preserved. IMPRESSION: No acute intracranial pathology or bleed. Dictated by Argentina Contreras MD @ 04/12/2017 8:18:44 PM Dictated by: Argentina Contreras MD @ 04/12/2017 20:18:49 (Electronic Signature) Report Signed by Proxy. [facility]
== END 2017-04-12 21:05 | disposition home or self-care (01) ==
LOC: MW.ED 19:13
DX: F41.9 Anxiety disorder, unspecified (principal); R20.2 Paresthesia of skin; F90.9 Attention-deficit hyperactivity disorder, unspecified type; Z79.899 Other long term (current) drug therapy; Z88.0 Allergy status to penicillin
CPT/HCPCS: 36415; 70450; 71045; 80053; 80305; 81001; 82962; 84443; 85025; 85610; 93005; 99284; A9270

== ENCOUNTER 2018-05-04 20:35 | Emergency (ER) | payer OTHER ==
--- NOTE | 2018-05-04 20:51 | EDM.PDOC ---
<Ez Lim - Last Filed: 05/04/18 22:04> ED HPI GENERAL MEDICAL PROBLEM - General Chief Complaint: Gastrointestinal Problem Stated Complaint: DIARRHEA, NOT FEELING GOOD Time Seen by Provider: 05/04/18 20:51 Source of Information: Reports: Patient History Limitations: Reports: No Limitations - History of Present Illness INITIAL COMMENTS - FREE TEXT/NARRATIVE: HISTORY AND PHYSICAL: History of present illness: Patient is a 27-year-old male here with complaint of diarrhea x 2 months. He states he has had loose, watery diarrhea that has gotten worse in the recent week. He is having 4+ loose stools per day. Today he started having abdominal pain and just not feeling well. He denies fevers, chills, nausea, vomiting, urinary symptoms. He states he has had a small amount of blood in his stools a couple of times. He is otherwise healthy and denies significant past medical history. Review of systems: As per history of present illness and below otherwise all systems reviewed and negative. Past medical history: As per history of present illness and as reviewed below otherwise noncontributory. Surgical history: As per history of present illness and as reviewed below otherwise noncontributory. Social history: No reported history of drug or alcohol abuse. Family history: As per history of present illness and as reviewed below otherwise noncontributory. Physical exam: General: Patient sitting comfortably in no acute distress and nontoxic appearing HEENT: Atraumatic, normocephalic, pupils reactive, negative for conjunctival pallor or scleral icterus, mucous membranes moist, throat clear, neck supple, nontender, trachea midline. No meningeal signs. Lungs: Clear to auscultation, breath sounds equal bilaterally, chest nontender. Heart: S1S2, regular, negative for clicks, rubs, or overt murmur. Abdomen: Moderate LUQ tenderness to palpation. Soft, nondistended. Negative for masses or hepatosplenomegaly. Negative for costovertebral tenderness. No rigidity, rebound, guarding. Pelvis: Stable nontender. Genitourinary: Deferred. Rectal: Deferred. Extremities: Atraumatic, negative for cords or calf pain. Neurovascular unremarkable. Neuro: Awake, alert, oriented. Cranial nerves II through XII unremarkable. Cerebellum unremarkable. Motor and sensory unremarkable throughout. Exam nonfocal. Notes: Diagnostics: CBC, CMP, lipase, stool studies, CT abdomen/pelvis w/o contrast Therapeutics: 1L Normal Saline IV Prescriptions: Impression: Diarrhea, abdominal pain Plan: Signed out to Dr. Tom at 2200 Definitive disposition and diagnosis as appropriate pending reevaluation and review of above. Abdomen Pain Score (Numeric/FACES): 6 - Related Data Allergies Allergy/AdvReac Type Severity Reaction Status Date / Time Penicillins Allergy Burning Verified 05/04/18 20:47 Home Meds: Home Meds Modafinil 200 mg PO 05/04/18 [History] Past Medical History HEENT History: Reports: None Cardiovascular History: Reports: None Respiratory History: Reports: None Gastrointestinal History: Reports: None Other Gastrointestinal History: Colitis Genitourinary History: Reports: None Musculoskeletal History: Reports: Back Pain, Chronic Other Musculoskeletal History: 3 herniated discs and 1 bulging Neurological History: Reports: None Psychiatric History: Reports: ADHD Endocrine/Metabolic History: Reports: None Hematologic History: Reports: None Immunologic History: Reports: None Oncologic (Cancer) History: Reports: None Dermatologic History: Reports: None - Infectious Disease History Infectious Disease History: Reports: None - Past Surgical History Head Surgeries/Procedures: Reports: None Musculoskeletal Surgical History: Reports: Other (See Below) Other Musculoskeletal Surgeries/Procedures:: back surgery. surgery to bilateral foot Social & Family History - Family History Family Medical History: Noncontributory Cardiac: Reports: CAD, [place], Other (See Below) Other Cardiac Family History: casspa had triple bypass recently Respiratory: Reports: None Musculoskeletal: Reports: Connective Tissue Disease, Other (See Below) Other Musculoskeletal Family History: mother has Lupus Endocrine/Metabolic: Reports: Diabetes, type II - Caffeine Use Caffeine Use: Reports: Coffee ED ROS GENERAL - Review of Systems Review Of Systems: ROS reveals no pertinent complaints other than HPI. ED EXAM, GI/ABD - Physical Exam Exam: See Below (see dictation) Course - Vital Signs Last Recorded V/S: Last Vital Signs Temp 36.4 C 05/04/18 20:49 Pulse 78 05/04/18 20:49 Resp 18 05/04/18 20:49 BP 147/71 H 05/04/18 20:49 Pulse Ox 98 05/04/18 20:49 - Orders/Labs/Meds Orders: Active Orders 24 hr Category Date Time Status CULTURE STOOL + CAMPY+SHIGATOX [RM] Stat Lab 05/04/18 21:15 Results Labs: Laboratory Tests 05/04/18 05/04/18 Range/Units 21:19 21:19 WBC 7.05 (4.0-11.0) K/uL RBC 5.38 (4.50-5.90) M/uL Hgb 15.9 (13.0-17.0) g/dL Hct 45.5 (38.0-50.0) % MCV 84.6 (80.0-98.0) fL MCH 29.6 (27.0-32.0) pg MCHC 34.9 (31.0-37.0) g/dL RDW Std Deviation 40.3 (28.0-62.0) fl RDW Coeff of Nakia 13 (11.0-15.0) % Plt Count 191 (150-400) K/uL MPV 10.50 (7.40-12.00) fL Neut % (Auto) 50.4 (48.0-80.0) % Lymph % (Auto) 37.2 (16.0-40.0) % Reynolds % (Auto) 11.1 (0.0-15.0) % Eos % (Auto) 1.0 (0.0-7.0) % Baso % (Auto) 0.3 (0.0-1.5) % Neut # (Auto) 3.6 (1.4-5.7) K/uL Lymph # (Auto) 2.6 H (0.6-2.4) K/uL Reynolds # (Auto) 0.8 (0.0-0.8) K/uL Eos # (Auto) 0.1 (0.0-0.7) K/uL Baso # (Auto) 0.0 (0.0-0.1) K/uL Nucleated RBC % 0.0 /100WBC Nucleated RBCs # 0 K/uL Sodium 140 (136-148) mmol/L Potassium 3.9 (3.5-5.1) mmol/L Chloride 104 (98-107) mmol/L Carbon Dioxide 23.5 (21.0-32.0) mmol/L BUN 14 (7.0-18.0) mg/dL Creatinine 0.8 (0.8-1.3) mg/dL Est Cr Clr Drug Dosing 161.26 mL/min Estimated GFR (MDRD) > 60.0 ml/min Glucose 92 (74-106) mg/dL Calcium 9.1 (8.5-10.1) mg/dL Total Bilirubin 0.7 (0.2-1.0) mg/dL AST 21 (15-37) IU/L ALT 57 (14-63) IU/L Alkaline Phosphatase 67 (46-116) U/L Total Protein 7.4 (6.4-8.2) g/dL Albumin 4.5 (3.4-5.0) g/dL Globulin 2.9 (2.6-4.0) g/dL Albumin/Globulin Ratio 1.6 (0.9-1.6) Lipase 57 L (73-393) U/L Meds: Medications Discontinued Medications Generic Name Dose Route Start Last Admin Trade Name Freq PRN Reason Stop Dose Admin Sodium Chloride 1,000 mls @ 999 mls/hr 05/04/18 21:49 05/04/18 22:54 Normal Saline IV 05/04/18 22:49 999 mls/hr STAT ONE Administration Iopamidol 100 ml 05/04/18 22:24 05/04/18 22:25 Isovue Multipack-370 (76%) IVPUSH 05/04/18 22:25 100 ml ONETIME STA Administration Morphine Sulfate 4 mg 05/04/18 23:07 05/04/18 23:12 Morphine IVPUSH 05/04/18 23:08 4 mg ONETIME ONE Administration Departure - Departure Disposition: Home, Self-Care 01 Condition: Good Clinical Impression: Diarrhea Qualifiers: Diarrhea type: unspecified type Qualified Code(s): R19.7 - Diarrhea, unspecified Abdominal pain Qualifiers: Abdominal location: generalized Qualified Code(s): R10.84 - Generalized abdominal pain - Discharge Information Referrals: PCP,None [Primary Care Provider] - Forms: ED Department Discharge Additional Instructions: The following information is given to patients seen in the emergency department who are being discharged to home. This information is to outline your options for follow-up care. We provide all patients seen in our emergency department with a follow-up referral. The need for follow-up, as well as the timing and circumstances, are variable depending upon the specifics of your emergency department visit. If you don't have a primary care physician on staff, we will provide you with a referral. We always advise you to contact your personal physician following an emergency department visit to inform them of the circumstance of the visit and for follow-up with them and/or the need for any referrals to a consulting specialist. The emergency department will also refer you to a specialist when appropriate. This referral assures that you have the opportunity for followup care with a specialist. All of these measure are taken in an effort to provide you with optimal care, which includes your followup. Under all circumstances we always encourage you to contact your private physician who remains a resource for coordinating your care. When calling for followup care, please make the office aware that this follow-up is from your recent emergency room visit. If for any reason you are refused follow-up, please contact the [facility] emergency department at and ask to speak to the emergency department charge nurse. [facility] Primary care- Internal Medicine and Family [address] [address] Please push hydration including Gatorade and other electrolyte solutions as well as eating bland foods. Please contact your provider at the [place] clinic or one of our providers for follow-up care and get referral for gastroenterology consultation as we discussed as you may need more testing and evaluation of your chronic issues with diarrhea over the last few months. You may use over-the -counter products such as Imodium or Pepto-Bismol to help with your diarrhea. Please use the Bentyl/dicyclomine you have been given from [facility] for cramping and pain. Return to ER as needed and as discussed <Monserrat Tom - Last Filed: 05/04/18 23:44> ED HPI GENERAL MEDICAL PROBLEM - History of Present Illness INITIAL COMMENTS - FREE TEXT/NARRATIVE: Dr. Tom dictating an addendum note as I have assumed care of this case at 10 PM. Agree with history and physical as above and have reviewed his testing results. We are currently awaiting the CT scan results as of 2304. Patient says he is having abdominal cramping so I will give a small dose of morphine but will plan on sending the patient home with Bentyl. I've explained all testing results to the patient and have recommended that he speak with his provider at the [place] [facility] to get referral to GI as they need to address the more chronic problem with the intermittent episodic diarrhea as this may be an IBS syndrome. I advised him that he can take [id number] Imodium or medications to help with the diarrhea as our tests are negative for bacterial infection. I will also give him Bentyl/dicyclomine for the cramping and advised pushing hydration ED ROS GENERAL - Review of Systems Review Of Systems: ROS reveals no pertinent complaints other than HPI. Departure - Departure Time of Disposition: 23:43 Condition: Good
[2018-05-04 21:49] LABS: CHLORIDE,CL 104 mmol/L (98-107); SODIUM,NA 140 mmol/L (136-148)
[2018-05-04] MEDS ORDERED: Sodium Chloride 0.9% 1,000 ML IV ONE (21:49)
[2018-05-04] MEDS ORDERED: Iopamidol 755 MG/ML 500 ML Multipack Bottle IVPUSH STA (22:24)
[2018-05-04] MEDS ORDERED: Morphine 2 MG/ML Syringe IVPUSH ONE (23:07)
--- NOTE | 2018-05-04 23:38 | CT ---
INDICATION: Abdominal pain TECHNIQUE: CT abdomen and pelvis acquired with 100 cc Isovue 370 IV contrast. COMPARISON: None FINDINGS: Lower chest: Unremarkable. Liver: 7 mm hypodense lesion in the right hepatic lobe, too small to accurately characterize. Spleen: Unremarkable. Pancreas: Unremarkable. Gallbladder and bile ducts: Unremarkable. Adrenal glands: Unremarkable. Kidneys: Unremarkable. GI tract: Fluid in the colon. No colonic wall thickening. Appendix and terminal ileum are normal. Vascular structures: Unremarkable. Lymph nodes: Unremarkable. Miscellaneous: Small fat containing left inguinal hernia. No free air or significant free fluid. Pelvic Organs: Unremarkable. Bones: Unremarkable for age. IMPRESSION: Fluid in the colon consistent with acute diarrheal illness. Normal appendix. Small fat containing left inguinal hernia. Please note that all CT scans at this facility use dose modulation, iterative reconstruction, and/or weight-based dosing when appropriate to reduce radiation dose to as low as reasonably achievable. Dictated by Halina Chicas MD @ May 04 2018 11:37PM Signed by Dr. Halina Chicas @ May 04 2018 11:37PM
[2018-05-05 01:32] VITALS: BP 120/63
== END 2018-05-05 00:02 | disposition home or self-care (01) ==
LOC: MW.ED 20:35
DX: R19.7 Diarrhea, unspecified (principal); R10.84 Generalized abdominal pain; R10.12 Left upper quadrant pain; Z88.0 Allergy status to penicillin
CPT/HCPCS: 36415; 74177; 80053; 82272; 83690; 85025; 87046; 87324; 87899; 96361; 96374; 99284; J2270; J7040; Q9967

== ENCOUNTER 2018-05-28 15:40 | Emergency (ER) | payer OTHER ==
[2018-05-28] MEDS ORDERED: Hyoscyamine 0.125 MG Tab.SL SL ONE (16:29)
[2018-05-28 16:50] LABS: CHLORIDE,CL 107 mmol/L (98-107); SODIUM,NA 142 mmol/L (136-148)
--- NOTE | 2018-05-28 17:02 | EDM.PDOC ---
ED HPI GENERAL MEDICAL PROBLEM - General Chief Complaint: Abdominal Pain Stated Complaint: STOMACH PAINS Time Seen by Provider: 05/28/18 16:03 Source of Information: Reports: Patient History Limitations: Reports: No Limitations - History of Present Illness INITIAL COMMENTS - FREE TEXT/NARRATIVE: History of present illness: []Patient's had 3 months of abdominal pain and has been seen by multiple providers and does not have diagnosis. His bili is worse today. Review of systems: As per history of present illness and below otherwise all systems reviewed and negative. Past medical history: As per history of present illness and as reviewed below otherwise noncontributory. Surgical history: As per history of present illness and as reviewed below otherwise noncontributory. Social history: No reported history of drug or alcohol abuse. Family history: As per history of present illness and as reviewed below otherwise noncontributory. Physical exam: General: Well developed, well nourished in NAD HEENT: Atraumatic, normocephalic, pupils reactive, negative for conjunctival pallor or scleral icterus, mucous membranes moist, throat clear, neck supple, nontender, trachea midline. Lungs: Clear to auscultation, breath sounds equal bilaterally, chest nontender. Heart: S1S2, regular, negative for clicks, rubs, or JVD. Abdomen: NABS, Soft, nondistended, mild diffuse tenderness no rebound or guarding. Negative for masses or hepatosplenomegaly. Negative for costovertebral tenderness. Pelvis: Stable nontender. Genitourinary: Deferred. Rectal: Deferred. Extremities: Atraumatic, negative for cords or calf pain. Neurovascular unremarkable. Neuro: Awake, alert, oriented. Cranial nerves II through XII unremarkable. Cerebellum unremarkable. Motor and sensory unremarkable throughout. Exam nonfocal. Skin:warm and dry Diagnostics: CBC, chemistry, lipase Therapeutics: Hyoscyamine ED Course: Stable Impression: Back abdominal pain Prescriptions: Hyoscyamine Plan: Take meds as directed, follow up with your primary care physician, return to ER if symptoms worsen or change. Definitive disposition and diagnosis as appropriate pending reevaluation and review of above. Abdominal Pain Score (Numeric/FACES): 6 - Related Data Allergies Allergy/AdvReac Type Severity Reaction Status Date / Time Penicillins Allergy Burning Verified 05/28/18 15:47 Home Meds: Home Meds Modafinil 200 mg PO DAILY 05/04/18 [History] Hyoscyamine [Hyomax-SL] 0.125 mg SL Q4H PRN #20 tab.sl 05/28/18 [Rx] Past Medical History HEENT History: Reports: None Cardiovascular History: Reports: None Respiratory History: Reports: None Gastrointestinal History: Reports: None Other Gastrointestinal History: Colitis Genitourinary History: Reports: None Musculoskeletal History: Reports: Back Pain, Chronic Other Musculoskeletal History: 3 herniated discs and 1 bulging Neurological History: Reports: None Psychiatric History: Reports: ADHD Endocrine/Metabolic History: Reports: None Hematologic History: Reports: None Immunologic History: Reports: None Oncologic (Cancer) History: Reports: None Dermatologic History: Reports: None - Infectious Disease History Infectious Disease History: Reports: None - Past Surgical History Head Surgeries/Procedures: Reports: None Musculoskeletal Surgical History: Reports: Other (See Below) Other Musculoskeletal Surgeries/Procedures:: back surgery. surgery to bilateral foot Social & Family History - Family History Family Medical History: Noncontributory Cardiac: Reports: CAD, [place], Other (See Below) Other Cardiac Family History: steven had triple bypass recently Respiratory: Reports: None Musculoskeletal: Reports: Connective Tissue Disease, Other (See Below) Other Musculoskeletal Family History: mother has Lupus Endocrine/Metabolic: Reports: Diabetes, type II - Tobacco Use Smoking Status *Q: Never Smoker - Caffeine Use Caffeine Use: Reports: Coffee - Recreational Drug Use Recreational Drug Use: No ED ROS GENERAL - Review of Systems Review Of Systems: ROS reveals no pertinent complaints other than HPI. ED EXAM, GI/ABD - Physical Exam Exam: See Below (The history of present illness) Course - Vital Signs Last Recorded V/S: Last Vital Signs Temp 98.5 F 05/28/18 15:48 Pulse 76 05/28/18 15:48 Resp 17 05/28/18 15:48 BP 155/101 H 05/28/18 15:48 Pulse Ox 98 05/28/18 15:48 - Orders/Labs/Meds Labs: Laboratory Tests 05/28/18 05/28/18 Range/Units 16:20 16:20 WBC 5.15 (4.0-11.0) K/uL RBC 5.35 (4.50-5.90) M/uL Hgb 15.8 (13.0-17.0) g/dL Hct 46.0 (38.0-50.0) % MCV 86.0 (80.0-98.0) fL MCH 29.5 (27.0-32.0) pg MCHC 34.3 (31.0-37.0) g/dL RDW Std Deviation 42.0 (28.0-62.0) fl RDW Coeff of Nakia 14 (11.0-15.0) % Plt Count 170 (150-400) K/uL MPV 10.50 (7.40-12.00) fL Neut % (Auto) 57.0 (48.0-80.0) % Lymph % (Auto) 33.8 (16.0-40.0) % Hardy % (Auto) 8.2 (0.0-15.0) % Eos % (Auto) 0.8 (0.0-7.0) % Baso % (Auto) 0.2 (0.0-1.5) % Neut # (Auto) 2.9 (1.4-5.7) K/uL Lymph # (Auto) 1.7 (0.6-2.4) K/uL Hardy # (Auto) 0.4 (0.0-0.8) K/uL Eos # (Auto) 0.0 (0.0-0.7) K/uL Baso # (Auto) 0.0 (0.0-0.1) K/uL Nucleated RBC % 0.0 /100WBC Nucleated RBCs # 0 K/uL Sodium 142 (136-148) mmol/L Potassium 4.1 (3.5-5.1) mmol/L Chloride 107 (98-107) mmol/L Carbon Dioxide 24.5 (21.0-32.0) mmol/L BUN 17 (7.0-18.0) mg/dL Creatinine 0.9 (0.8-1.3) mg/dL Est Cr Clr Drug Dosing 135.32 mL/min Estimated GFR (MDRD) > 60.0 ml/min Glucose 106 (74-106) mg/dL Calcium 9.2 (8.5-10.1) mg/dL Total Bilirubin 0.3 (0.2-1.0) mg/dL AST 38 H (15-37) IU/L ALT 75 H (14-63) IU/L Alkaline Phosphatase 53 (46-116) U/L Total Protein 7.4 (6.4-8.2) g/dL Albumin 4.3 (3.4-5.0) g/dL Globulin 3.1 (2.6-4.0) g/dL Albumin/Globulin Ratio 1.4 (0.9-1.6) Lipase 51 L (73-393) U/L Meds: Medications Discontinued Medications Generic Name Dose Route Start Last Admin Trade Name Freq PRN Reason Stop Dose Admin Hyoscyamine 0.125 mg 05/28/18 16:29 05/28/18 16:52 Hyomax-Sl SL 05/28/18 16:30 0.125 mg ONETIME ONE Administration Departure - Departure Time of Disposition: 17:24 Disposition: Home, Self-Care 01 Condition: Good Clinical Impression: Chronic abdominal pain - Discharge Information *PRESCRIPTION DRUG MONITORING PROGRAM REVIEWED*: No *COPY OF PRESCRIPTION DRUG MONITORING REPORT IN PATIENT SOSA: No Prescriptions: Hyoscyamine [Hyomax-SL] 0.125 mg SL Q4H PRN #20 tab.sl PRN Reason: Pain Referrals: PCP,None [Primary Care Provider] - Forms: ED Department Discharge Additional Instructions: The following information is given to patients seen in the emergency department who are being discharged to home. This information is to outline your options for follow-up care. We provide all patients seen in our emergency department with a follow-up referral. The need for follow-up, as well as the timing and circumstances, are variable depending upon the specifics of your emergency department visit. If you don't have a primary care physician on staff, we will provide you with a referral. We always advise you to contact your personal physician following an emergency department visit to inform them of the circumstance of the visit and for follow-up with them and/or the need for any referrals to a consulting specialist. The emergency department will also refer you to a specialist when appropriate. This referral assures that you have the opportunity for follow-up care with a specialist. All of these measure are taken in an effort to provide you with optimal care, which includes your follow-up. Under all circumstances we always encourage you to contact your private physician who remains a resource for coordinating your care. When calling for follow-up care, please make the office aware that this follow-up is from your recent emergency room visit. If for any reason you are refused follow-up, please contact the [facility] Emergency Department at and asked to speak to the emergency department charge nurse. [facility] Primary [facility] [address] [place] [id number]
[2018-05-28 17:41] VITALS: BP 135/88
== END 2018-05-28 17:45 | disposition home or self-care (01) ==
LOC: MW.ED 15:40
DX: R10.9 Unspecified abdominal pain (principal); Z88.0 Allergy status to penicillin
CPT/HCPCS: 36415; 80053; 83690; 85025; 99284; A9270; 99283

== ENCOUNTER 2019-04-28 06:34 | Day surgery (SDC) | payer OTHER ==
[~2019-04-28 06:34] MED LIST changes: -Betamethasone Acetate/Betamethasone Sod Phosphate 30 MG/5 ML MDV ONE; -Iopamidol 408 MG/ML 50 ML SDV ONE; +Lactated Ringers 1,000 ML IV SCH; -Lidocaine 2% 5 ML SDV ONE; -Ropivacaine 0.2% 2 MG/ML 20 ML SDV ONE
[2019-04-28] MEDS ORDERED: Ondansetron 4 MG/2 ML SDV ONE (07:22)
[2019-04-28] MEDS ORDERED: Midazolam 1 MG/ML 2 ML SDV ONE (07:22)
[2019-04-28] MEDS ORDERED: Lidocaine 2% 5 ML SDV ONE (07:22)
[2019-04-28] MEDS ORDERED: fentaNYL 100 MCG/2 ML SDV ONE (07:22)
[2019-04-28] MEDS ORDERED: Propofol 200 MG/20 ML SDV ONE (07:22)
[2019-04-28] MEDS ORDERED: Lidocaine 1% with EPINEPHrine 1:100,000 20 ML MDV ONE (07:23)
[2019-04-28] MEDS ORDERED: Bupivacaine 0.5%/EPINEPHrine 1:200,000 10 ML SDV ONE (07:23)
--- NOTE | 2019-04-28 07:34 | PCM.PREANE ---
Preanesthetic Assessment - Anesthesia/Transfusion/Family Hx Anesthesia History: Prior Anesthesia Without Reaction Family History of Anesthesia Reaction: No Transfusion History: No Prior Transfusion(s) - Review of Systems General: No Symptoms Pulmonary: No Symptoms Cardiovascular: No Symptoms Gastrointestinal: No Symptoms Neurological: No Symptoms Other: Reports: None - Physical Assessment NPO Status Date: 04/27/19 Height: 6 ft 2 in Weight: 92.533 kg ASA Class: 2 Mental Status: Alert & Oriented x3 Airway Class: Mallampati = 2 Dentition: Reports: Normal Dentition ROM/Head Extension: Full Lungs: Clear to Auscultation, Normal Respiratory Effort Cardiovascular: Regular Rate, Regular Rhythm - Allergies Allergies/Adverse Reactions: Allergies Allergy/AdvReac Type Severity Reaction Status Date / Time Penicillins Allergy Burning Verified 04/24/19 13:52 - Blood Blood Available: No - Anesthesia Plan Pre-Op Medication Ordered: None - Acknowledgements Anesthesia Type Planned: General Anesthesia Pt an Appropriate Candidate for the Planned Anesthesia: Yes Alternatives and Risks of Anesthesia Discussed w Pt/Guardian: Yes Pt/Guardian Understands and Agrees with Anesthesia Plan: Yes Additional Comments: PMH: chronic LBP, ADHD - modafenil, anxiety, PTSD PLAN: ga/lma PreAnesthesia Questionnaire HEENT History: Reports: Other (See Below) Other HEENT History: hx fx jaw Cardiovascular History: Reports: None Respiratory History: Reports: None Gastrointestinal History: Reports: GERD Other Gastrointestinal History: GERD on occasion, denies taking any medication for this Genitourinary History: Reports: None Musculoskeletal History: Reports: Back Pain, Chronic, Fracture Other Musculoskeletal History: 3 herniated discs and 1 bulging, hx fx wrist, hand, ankle and jaw Neurological History: Reports: None Psychiatric History: Reports: ADHD, Anxiety, PTSD Endocrine/Metabolic History: Reports: None Hematologic History: Reports: None Immunologic History: Reports: None Oncologic (Cancer) History: Reports: None Dermatologic History: Reports: None - Infectious Disease History Infectious Disease History: Reports: None - Past Surgical History Head Surgeries/Procedures: Reports: None HEENT Surgical History: Reports: Other (See Below) Other HEENT Surgeries/Procedures: temporary loss of hearing 2014 no further problems Cardiovascular Surgical History: Reports: None Respiratory Surgical History: Reports: None GI Surgical History: Reports: Colonoscopy Male Surgical History: Reports: None Endocrine Surgical History: Reports: None Neurological Surgical History: Reports: None Musculoskeletal Surgical History: Reports: Other (See Below) Other Musculoskeletal Surgeries/Procedures:: hx for fx rt hand and crunch injury to left thumb Oncologic Surgical History: Reports: None Dermatological Surgical History: Reports: None - SUBSTANCE USE Smoking Status *Q: Light Tobacco Smoker Tobacco Use Within Last Twelve Months: Vaping Recreational Drug Type: Reports: Marijuana/Hashish Recreational Drug Last Use: 1 week ago - HOME MEDS Home Medications: Home Meds modafiniL [Modafinil] 200 mg PO DAILY 05/04/18 [History] Melatonin/Pyridoxine HCl (B6) [Melatonin 3 mg Tablet] 3 mg PO BEDTIME 04/24/19 [ History] - CURRENT (IN HOUSE) MEDS Current Meds: Current Medications Lactated Ringer's (Ringers, Lactated) 1,000 mls @ 125 mls/hr IV ASDIRECTED JOSIE Discontinued Medications Bupivacaine HCl/Epinephrine Bitart (Marcaine 0.5%/Epinephrine 1:200,000) Confirm Administered Dose 20 ml .ROUTE .STK-MED ONE Stop: 04/28/19 07:24 Fentanyl (Sublimaze) Confirm Administered Dose 100 mcg .ROUTE .STK-MED ONE Stop: 04/28/19 07:23 Vancomycin HCl 1.5 gm/ Premix 300 mls @ 300 mls/hr IV ONETIME ONE Stop: 04/28/19 05:01 Lidocaine (Xylocaine-Mpf 2%) Confirm Administered Dose 5 ml .ROUTE .STK-MED ONE Stop: 04/28/19 07:23 Lidocaine/Epinephrine (Xylocaine 1% With Epinephrine 1:100,000) Confirm Administered Dose 20 ml .ROUTE .STK-MED ONE Stop: 04/28/19 07:24 Midazolam HCl (Versed 1 Mg/Ml) Confirm Administered Dose 2 mg .ROUTE .STK-MED ONE Stop: 04/28/19 07:23 Ondansetron HCl (Zofran) Confirm Administered Dose 4 mg .ROUTE .STK-MED ONE Stop: 04/28/19 07:23 Propofol (Diprivan 20 Ml) Confirm Administered Dose 200 mg .ROUTE .STK-MED ONE Stop: 04/28/19 07:23
[2019-04-28] MEDS ORDERED: Famotidine 20 MG/2 ML SDV ONE (07:40)
[2019-04-28] MEDS ORDERED: Acetaminophen/oxyCODONE 325-5 MG Tab PO PRN (07:44)
[2019-04-28] MEDS ORDERED: HYDROmorphone 2 MG/ML Syringe ONE (07:56)
[2019-04-28] MEDS ORDERED: Dexamethasone 4 MG/ML 5 ML MDV ONE (08:11)
[2019-04-28] MEDS ORDERED: Ketorolac 30 MG/ML SDV ONE (08:11)
[2019-04-28] MEDS ORDERED: 50% Dextrose in Water 50 ML Syringe IVPUSH PRN (08:14)
[2019-04-28] MEDS ORDERED: Naloxone 0.4 MG/ML Syringe IVPUSH PRN (08:14)
[2019-04-28] MEDS ORDERED: Atropine 0.1 MG/ML 10 ML Syringe IVPUSH PRN ×2 (08:14)
--- NOTE | 2019-04-28 09:50 | PCM.OPNOTE ---
- General Post-Op/Procedure Note Date of Surgery/Procedure: 04/28/19 Operative Procedure(s): LIH rep w mesh Findings: mod size lipoma and mod size direct hernia, rep w small mesh and plug; [id number] Pre Op Diagnosis: LIH Post-Op Diagnosis: Same Anesthesia Technique: General ET Tube Primary Surgeon: Gorge Schultz Pathology: sent Complications: None Condition: Good
[2019-04-28] MEDS: fentaNYL 100 MCG/2 ML SDV IVPUSH PRN ×2 (10:11→10:18)
--- NOTE | 2019-04-28 10:46 | OR ---
SURGEON: Gorge Schultz MD DATE OF PROCEDURE: 04/28/2019 PREOPERATIVE DIAGNOSIS: Left inguinal hernia. POSTOPERATIVE DIAGNOSIS: Left inguinal hernia. PROCEDURE PERFORMED: Repair with mesh and plug. PRIMARY SURGEON: Gorge Schultz MD. COMPLICATIONS: None. FINDINGS: The patient has a moderate-sized cord lipoma and moderate-sized indirect hernia, repaired with small mesh and plug. PROCEDURE IN DETAIL: The patient was taken to the operating room and placed in the supine position. Upon induction of general endotracheal anesthesia, the patient's groin and inguinal area were prepped and draped in a sterile fashion. The scrotum was placed on top of the drape in case it needed to be maneuvered. An IV antibiotic was given prophylactically and after assessment of appropriate landmark, a transverse incision was made about 2 fingers above inguinal crease, and was extended taken down past the Silviano fascia and exposed the external oblique where the cord is. The external ring was also identified and using a 15 blade, a small cassandra was made right on top of the cord and then using a Metzenbaum scissors, carefully opened up the fiber along its direction all the way to the external ring. The spermatic cord was then carefully lifted up from the inguinal canal. A Jackelin drain was then used to hold on to manipulate the cord and carefully dissect out from the inguinal floor. The cremasteric muscle was then opened up. The vas was noted and gently dissected away from a cord lipoma. The lipoma was amputated after tie off w a 2 '0' silk; pat also has a mod size of direct hernia; and a small plug was inserted; Custom fit mesh was then used to reinforce the inguinal floor. The mesh was then anchored down by using 2-0 Prolene stitches to the periosteum of the pubic symphysis, then running down to the lateral aspect of the rectus muscle. The lateral part of the mesh was then anchored to the Fritz ligament, again using 2 - 0 Prolene. The last few stitches also anchored the plug to make sure the plug is not migrating. Where the cord exits out, a stitch was placed in the two tails to repair the internal ring. Upon conclusion of surgery, I used a finger to make sure the ring is not too tight and not too loose, followed with some irrigation. The external oblique was then repaired by use of 2-0 Vicryl and the recreation external ring was also tested, not too tight, not too loose, followed with 2-0 Vicryl and closed the Silviano fascia and the skin stapled to approximate the skin, followed by appropriate dressing. The patient was then awakened, extubated and transferred to recovery room in a hemodynamically stable condition. The patient tolerated the procedure well. There were no intraoperative complications. Dr. Schultz was present through the whole procedure. Just before surgery, a timeout was called. The patient was identified and procedure identified and procedure started. As always, thank you for the kind referral. Intraoperative findings as dictated above. GENARO / SAUL /[id number] KAY
--- NOTE | 2019-04-28 11:34 | PCM.POSTAN ---
POST ANESTHESIA ASSESSMENT - MENTAL STATUS Mental Status: Alert, Oriented - VITAL SIGNS Vital Signs: Last Vital Signs Temp 97.2 F 04/28/19 10:35 Pulse 58 L 04/28/19 10:50 Resp 16 04/28/19 10:50 BP 131/60 04/28/19 10:50 Pulse Ox 96 04/28/19 10:50 - RESPIRATORY Respiratory Status: Respiratory Rate WNL, Airway Patent, O2 Saturation Stable - CARDIOVASCULAR CV Status: Pulse Rate WNL, Blood Pressure Stable - GASTROINTESTINAL GI Status: No Symptoms - POST OP HYDRATION Hydration Status: Adequate & Stable
--- NOTE | 2019-04-28 11:34 | PCM48HPAN ---
Post Anesthesia Note - EVALUATION WITHIN 48HRS OF ANESTHETIC Vital Signs in Normal Range: Yes Patient Participated in Evaluation: Yes Respiratory Function Stable: Yes Airway Patent: Yes Cardiovascular Function Stable: Yes Hydration Status Stable: Yes Pain Control Satisfactory: Yes Nausea and Vomiting Control Satisfactory: Yes Mental Status Recovered: Yes Vital Signs: Last Vital Signs Temp 97.2 F 04/28/19 10:35 Pulse 58 L 04/28/19 10:50 Resp 16 04/28/19 10:50 BP 131/60 04/28/19 10:50 Pulse Ox 96 04/28/19 10:50
[2019-04-28 12:49] VITALS: BP 112/64; PULSE 56
== END 2019-04-28 11:50 | disposition home or self-care (01) ==
LOC: MW.SDS 06:34
PROVIDERS: ATTEND Surgery
DX: K40.90 Unilateral inguinal hernia, without obstruction or gangrene, not specified as recurrent (principal); D17.6 Benign lipomatous neoplasm of spermatic cord; Z88.0 Allergy status to penicillin; Z87.891 Personal history of nicotine dependence; Z79.899 Other long term (current) drug therapy
CPT/HCPCS: 49505; A9270; C1781; J1100; J1170; J1885; J2001; J2250; J2405; J2704; J3010; J3370; J3490; J7120; S0028; 00830; 88304

== ENCOUNTER 2019-11-25 11:29 | Emergency (ER) | payer OTHER ==
--- NOTE | 2019-11-25 11:39 | EDM.PDOC ---
ED HPI GENERAL MEDICAL PROBLEM - General Chief Complaint: Respiratory Problem Stated Complaint: POSITIVE COVID Time Seen by Provider: 11/25/19 11:31 Source of Information: Reports: Patient History Limitations: Reports: No Limitations - History of Present Illness INITIAL COMMENTS - FREE TEXT/NARRATIVE: HISTORY AND PHYSICAL: History of present illness: Patient is a 29-year-old male who presents to the emergency room with complaints of weakness, dizziness, decreased oral intake with a positive COVID-19 test. He states earlier this week he was tested for COVID-19 as he had a loss of smell, taste, some nausea, vomiting and diarrhea. He tested positive for COVID-19 and has been on quarantine. He called the [place] one-call number for advice as he continues to have symptoms, feels weak and dizzy. The [place] recommended he come into the emergency room for evaluation. Patient is concerned he may be may be dehydrated as he has no desire to eat or drink much (associated with nausea and occasional vomiting still). Patient denies any fever, chills, headache, change in vision, syncope or near syncope. Denies any chest pain, back pain, shortness of breath or cough. Denies any abdominal pain,constipation or dysuria. Has not noted any blood in urine or stool. Patient has been eating and drinking appropriately. Review of systems: As per history of present illness and below otherwise all systems reviewed and negative. Past medical history: As per history of present illness and as reviewed below otherwise noncontributory. Surgical history: As per history of present illness and as reviewed below otherwise noncontributory. Social history: See social history for further information Family history: As per history of present illness and as reviewed below otherwise non contributory. Physical exam: General: Well developed and well nourished 29 year old male. Alert and orientated x 3. Nontoxic in appearance and in no acute distress. Vital signs are stable and have been reviewed by me. Nursing notes were reviewed. HEENT: Atraumatic, normocephalic, pupils equal and reactive bilaterally, negative for conjunctival pallor or scleral icterus, mucous membranes dry, TMs normal bilaterally, throat clear, neck supple, nontender, trachea midline. No drooling or trismus noted. No meningeal signs. No hot potato voice noted. Lungs: Clear to auscultation, breath sounds equal bilaterally, chest nontender. Normal work of breathing, no accessory muscles used. Heart: S1S2, regular rate and rhythm without overt murmur Abdomen: Soft, nondistended, nontender. Negative for masses or hepatosplenomegaly. Negative for costovertebral tenderness. Skin: Intact, warm, dry. No lesions or rashes noted. Hematologic: No petechiae or purpra. Mucosa appropriate color and normal nail b ed color and refill. Extremities: Atraumatic, moves all extremities per self without difficulty or deficits, negative for cords or calf pain. Neurovascular unremarkable. Neuro: Awake, alert, oriented. Cranial nerves II through XII unremarkable. Cerebellum unremarkable. Motor and sensory unremarkable throughout. Exam nonfocal. Psychiatric: Mood and affect are appropriate. Normal thought process. Answering questions appropriately. Notes: I have spoken with the patient/caregiver and discussed today's findings, in addition to providing specific details for plan of care. Reassessment at the time of disposition demonstrates that the patient is in no acute distress. The patient has remained stable throughout the entire ED visit and is without objective evidence for acute process requiring urgent intervention or hospitalization. The patient is stable for discharge, counseling was provided and we discussed in great detail signs and symptoms that would prompt them to return to the Emergency Department. Medication, follow up and supportive care measures were reviewed and discussed. Voices understanding and is agreeable to plan of care. Denies any further questions or concerns at this time. Diagnostics: CBC, CMP, UA, CXR, EKG Therapeutics: IV fluids Prescription: None Impression: COVID - 19 Plan: 1. Coronavirus is considered contagious. Your lab work, chest x-ray, vital signs and oxygen saturation are well enough that you were able to monitor your symptoms at home. Continue to monitor for trouble breathing, new confusion or inability to arouse, bluish lips or face or any of the other symptoms we discussed -if this occurs please return to the emergency room. 2. Please self quarantine over the next 2 weeks. Inform any persons that you have been in contact with since you started becoming symptomatic that you have tested positive; they should be made aware and take the appropriate steps as needed. 3. Supportive care measures such as increasing your fluids and psgm-cpq-[id number] medications for symptoms. You can take NyQuil during the evening to help get a restful night sleep. 4. You may alternate Tylenol and ibuprofen as needed for pain and fever management. 5. The [place] COVID 19 Hotline phone number , They are open Wednesday - Wednesday 7am - 7pm. Follow up with your primary care provider for re-evaluation and re-testing after the 2 week quarantine and discuss when you should be seen. Definitive disposition and diagnosis as appropriate pending reevaluation and review of above. - Related Data Allergies Allergy/AdvReac Type Severity Reaction Status Date / Time Penicillins Allergy Burning Verified 11/25/19 12:33 Home Meds: Home Meds modafiniL [Modafinil] 200 mg PO DAILY 05/04/18 [History] Past Medical History HEENT History: Reports: Other (See Below) Other HEENT History: hx fx jaw Cardiovascular History: Reports: None Respiratory History: Reports: None Gastrointestinal History: Reports: GERD Other Gastrointestinal History: GERD on occasion, denies taking any medication for this Genitourinary History: Reports: None Musculoskeletal History: Reports: Back Pain, Chronic, Fracture Other Musculoskeletal History: 3 herniated discs and 1 bulging, hx fx wrist, hand, ankle and jaw Neurological History: Reports: None Psychiatric History: Reports: ADHD, Anxiety, PTSD Endocrine/Metabolic History: Reports: None Hematologic History: Reports: None Immunologic History: Reports: None Oncologic (Cancer) History: Reports: None Dermatologic History: Reports: None - Infectious Disease History Infectious Disease History: Reports: None - Past Surgical History Head Surgeries/Procedures: Reports: None HEENT Surgical History: Reports: Other (See Below) Other HEENT Surgeries/Procedures: temporary loss of hearing 2014 no further problems Cardiovascular Surgical History: Reports: None Respiratory Surgical History: Reports: None GI Surgical History: Reports: Colonoscopy Male Surgical History: Reports: None Endocrine Surgical History: Reports: None Neurological Surgical History: Reports: None Musculoskeletal Surgical History: Reports: Other (See Below) Other Musculoskeletal Surgeries/Procedures:: hx for fx rt hand and crunch injury to left thumb Oncologic Surgical History: Reports: None Dermatological Surgical History: Reports: None Social & Family History - Family History Family Medical History: Noncontributory Cardiac: Reports: CAD, [place], Other (See Below) Other Cardiac Family History: grampa had triple bypass recently Respiratory: Reports: None Musculoskeletal: Reports: Connective Tissue Disease, Other (See Below) Other Musculoskeletal Family History: mother has Lupus Endocrine/Metabolic: Reports: Diabetes, type II - Caffeine Use Caffeine Use: Reports: Coffee ED ROS GENERAL - Review of Systems Review Of Systems: Comprehensive ROS is negative, except as noted in HPI. ED EXAM, GENERAL - Physical Exam Exam: See Below (See dictation) Course - Vital Signs Last Recorded V/S: Last Vital Signs Temp 96.9 F 11/25/19 12:34 Pulse 50 L 11/25/19 12:34 Resp 16 11/25/19 12:34 BP 116/62 11/25/19 12:34 Pulse Ox 97 11/25/19 12:34 - Orders/Labs/Meds Orders: Active Orders 24 hr Category Date Time Status EKG Documentation Completion [RC] STAT Care 11/25/19 11:57 Active Labs: Laboratory Tests 11/25/19 11/25/19 11/25/19 Range/Units 12:17 12:24 12:24 WBC 5.66 (4.0-11.0) K/uL RBC 5.79 (4.50-5.90) M/uL Hgb 17.1 H (13.0-17.0) g/dL Hct 50.9 H (38.0-50.0) % MCV 87.9 (80.0-98.0) fL MCH 29.5 (27.0-32.0) pg MCHC 33.6 (31.0-37.0) g/dL RDW Std Deviation 42.4 (28.0-62.0) fl RDW Coeff of Nakia 13 (11.0-15.0) % Plt Count 203 (150-400) K/uL MPV 11.20 (7.40-12.00) fL Neut % (Auto) 50.3 (48.0-80.0) % Lymph % (Auto) 38.5 (16.0-40.0) % [place] % (Auto) 9.2 (0.0-15.0) % Eos % (Auto) 1.6 (0.0-7.0) % Baso % (Auto) 0.4 (0.0-1.5) % Neut # (Auto) 2.9 (1.4-5.7) K/uL Lymph # (Auto) 2.2 (0.6-2.4) K/uL [place] # (Auto) 0.5 (0.0-0.8) K/uL Eos # (Auto) 0.1 (0.0-0.7) K/uL Baso # (Auto) 0.0 (0.0-0.1) K/uL Nucleated RBC % 0.0 /100WBC Nucleated RBCs # 0 K/uL Sodium 138 (136-148) mmol/L Potassium 4.4 (3.5-5.1) mmol/L Chloride 104 (98-107) mmol/L Carbon Dioxide 27.1 (21.0-32.0) mmol/L BUN 17 (7.0-18.0) mg/dL Creatinine 0.9 (0.8-1.3) mg/dL Est Cr Clr Drug Dosing 140.81 mL/min Estimated GFR (MDRD) > 60.0 ml/min Glucose 95 (74-106) mg/dL Calcium 9.0 (8.5-10.1) mg/dL Total Bilirubin 0.4 (0.2-1.0) mg/dL AST 22 (15-37) IU/L ALT 60 (14-63) IU/L Alkaline Phosphatase 65 (46-116) U/L Total Protein 7.3 (6.4-8.2) g/dL Albumin 4.3 (3.4-5.0) g/dL Globulin 3.0 (2.6-4.0) g/dL Albumin/Globulin Ratio 1.4 (0.9-1.6) Urine Color YELLOW Urine Appearance CLEAR Urine pH 5.5 (5.0-8.0) Ur Specific [place] 1.025 (1.001-1.035) Urine Protein NEGATIVE (NEGATIVE) mg/dL Urine Glucose (UA) NEGATIVE (NEGATIVE) mg/dL Urine Ketones NEGATIVE (NEGATIVE) mg/dL Urine Occult Blood NEGATIVE (NEGATIVE) Urine Nitrite NEGATIVE (NEGATIVE) Urine Bilirubin NEGATIVE (NEGATIVE) Urine Urobilinogen 0.2 (<2.0) EU/dL Ur Leukocyte Esterase NEGATIVE (NEGATIVE) Meds: Medications Discontinued Medications Generic Name Dose Route Start Last Admin Trade Name Freq PRN Reason Stop Dose Admin Sodium Chloride 1,000 mls @ 999 mls/hr 11/25/19 11:57 11/25/19 12:25 Normal Saline IV 11/25/19 12:57 999 mls/hr STAT ONE Administration Departure - Departure Time of Disposition: 13:07 Disposition: Home, Self-Care 01 Clinical Impression: COVID-19 - Discharge Information Instructions: COVID-19 Referrals: Ervin Hopper NP [Primary Care Provider] - Forms: ED Department Discharge Additional Instructions: The following information is given to patients seen in the emergency department who are being discharged to home. This information is to outline your options for follow-up care. We provide all patients seen in our emergency department with a follow-up referral. The need for follow-up, as well as the timing and circumstances, are variable depending upon the specifics of your emergency department visit. If you don't have a primary care physician on staff, we will provide you with a referral. We always advise you to contact your personal physician following an emergency department visit to inform them of the circumstance of the visit and for follow-up with them and/or the need for any referrals to a consulting specialist. The emergency department will also refer you to a specialist when appropriate. This referral assures that you have the opportunity for follow-up care with a specialist. All of these measure are taken in an effort to provide you with optimal care, which includes your follow-up. Under all circumstances we always encourage you to contact your private physician who remains a resource for coordinating your care. When calling for follow-up care, please make the office aware that this follow-up is from your recent emergency room visit. If for any reason you are refused follow-up, please contact the [facility] at and asked to speak to the emergency department charge nurse. [facility] [address] [place] [id number] [address] Thank you for choosing the [facility] emergency department in [place] for your medical needs today. It was a pleasure caring for you. Today you were seen in the emergency department for COVID-19 related symptoms. 1. Coronavirus is considered contagious. Your lab work, chest x-ray, vital signs and oxygen saturation are well enough that you were able to monitor your symptoms at home. Continue to monitor for trouble breathing, new confusion or inability to arouse, bluish lips or face or any of the other symptoms we discussed -if this occurs please return to the emergency room. 2. Please self quarantine over the next 2 weeks. Inform any persons that you have been in contact with since you started becoming symptomatic that you have tested positive; they should be made aware and take the appropriate steps as needed. 3. Supportive care measures such as increasing your fluids and [id number]-ihrtzsi medications for symptoms. You can take NyQuil during the evening to help get a restful night sleep. 4. You may alternate Tylenol and ibuprofen as needed for pain and fever management. 5. The [employer] Hotline phone number , They are open Wednesday - Wednesday 7am - 7pm. Follow up with your primary care provider for re-evaluation and re-testing after the 2 week quarantine and discuss when you should be seen. Sepsis Event Note (ED) - Focused Exam Vital Signs: Vital Signs Temp Pulse Resp BP Pulse Ox 11/25/19 12:34 96.9 F 50 L 16 116/62 97 - My Orders Last 24 Hours: My Active Orders 11/25/19 11:57 EKG Documentation Completion [RC] STAT - Assessment/Plan Last 24 Hours: My Active Orders 11/25/19 11:57 EKG Documentation Completion [RC] STAT
[2019-11-25] MEDS ORDERED: Sodium Chloride 0.9% 1,000 ML IV ONE (11:57)
[2019-11-25 12:36] VITALS: PULSE 50
--- NOTE | 2019-11-25 12:37 | PCM.SN.2 ---
EKG INTERPRETATION EKG Date: 11/25/19 Time: 12:37 Rhythm: NSR Rate (Beats/Min): 45 [place]: Normal P-Wave: Present QRS: Normal ST-T: Normal QT: Normal
--- NOTE | 2019-11-25 13:00 | CR ---
Indication: COVID positive. Technique: AP portable view of the chest. Comparison: April 12, 2017. Findings: The heart is normal in size. The lungs are clear. No infiltrate, pleural effusion, or pneumothorax is identified. Impression: No acute cardiopulmonary process Dictated by Eloian Ivy MD @ Nov 25 2019 12:57PM Signed by Dr. Eloina Ivy @ Nov 25 2019 12:58PM
[2019-11-25 13:01] LABS: BLOOD UREA NITROGEN,BUN 17 mg/dL (7.0-18.0); CARBON DIOXIDE,CO2 27.1 mmol/L (21.0-32.0); CHLORIDE,CL 104 mmol/L (98-107); GLUCOSE RANDOM 95 mg/dL (74-106); POTASSIUM,K 4.4 mmol/L (3.5-5.1); SODIUM,NA 138 mmol/L (136-148)
[2019-11-25 14:10] VITALS: BP 108/62
== END 2019-11-25 13:19 | disposition home or self-care (01) ==
LOC: MW.ED 11:29
DX: U07.1 COVID-19 (principal); Z88.0 Allergy status to penicillin
CPT/HCPCS: 36415; 71045; 80053; 81003; 85025; 93005; 96360; 99285; J7030; 99284

== ENCOUNTER 2022-08-28 10:56 | Emergency (ER) | payer OTHER ==
[2022-08-28] MEDS ORDERED: Sodium Chloride 0.9% 1,000 ML IV ONE (11:25)
[2022-08-28] MEDS ORDERED: LORazepam 2 MG/ML SDV IVPUSH ONE (11:30)
[2022-08-28 11:42] LABS: BASOPHILS PERCENT AUTO 0.4 % (0.0-1.5); EOSINOPHILS ABSOLUTE AUTO 0.1 K/uL (0.0-0.7); EOSINOPHILS PERCENT AUTO 2.1 % (0.0-7.0); HEMATOCRIT 48.5 % (38.0-50.0); HEMOGLOBIN 16.6 g/dL (13.0-17.0); LYMPHOCYTES ABSOLUTE AUTO 1.4 K/uL (0.6-2.4); LYMPHOCYTES PERCENT AUTO 26.7 % (16.0-40.0); MEAN CORPUSCULAR HEMOGLOBIN 29.5 pg (27.0-32.0); MEAN CORPUSCULAR HGB CONC 34.2 g/dL (31.0-37.0); MEAN CORPUSCULAR VOLUME 86.1 fL (80.0-98.0); MONOCYTES ABSOLUTE AUTO 0.5 K/uL (0.0-0.8); MONOCYTES PERCENT AUTO 9.5 % (0.0-15.0); NEUTROPHILS ABSOLUTE AUTO 3.2 K/uL (1.4-5.7); NEUTROPHILS PERCENT AUTO 61.3 % (48.0-80.0); PLATELET COUNT,PLT 175 K/uL (150-400); RED BLOOD CELL COUNT 5.63 M/uL (4.50-5.90); WHITE BLOOD CELL COUNT,WBC 5.16 K/uL (4.0-11.0)
[2022-08-28 12:06] LABS: A/G RATIO 1.3 (0.9-1.6); ALANINE AMINOTRANSFERASE,ALT 66 IU/L (14-63); ALBUMIN 4.1 g/dL (3.4-5.0); ALKALINE PHOSPHATASE 89 U/L (46-116); ASPARTATE AMNIOTRANSFERASE,AST 24 IU/L (15-37); BILIRUBIN TOTAL 0.4 mg/dL (0.2-1.0); BLOOD UREA NITROGEN,BUN 13 mg/dL (7.0-18.0); CALCIUM 9.2 mg/dL (8.5-10.1); CARBON DIOXIDE,CO2 27.8 mmol/L (21.0-32.0); CHLORIDE,CL 106 mmol/L (98-107); EST CRCL DRUG DOSING (CG) 124.44 mL/min; GLUCOSE RANDOM 111 mg/dL (74-106); POTASSIUM,K 4.8 mmol/L (3.5-5.1); PROTEIN TOTAL,TP 7.3 g/dL (6.4-8.2); SODIUM,NA 142 mmol/L (136-148)
[2022-08-28 12:10] LABS: ESTIMATED GFR 103 mL/min (>60); ETHANOL BLOOD MEDICAL < 3.0 mg/dL
[2022-08-28 13:20] LABS: APPEARANCE,URINE CLEAR; BILIRUBIN,URINE NEGATIVE (NEGATIVE); COLOR,URINE YELLOW; GLUCOSE,URINE NEGATIVE (NEGATIVE); KETONES,URINE NEGATIVE (NEGATIVE); LEUKOCYTE ESTERASE,URINE NEGATIVE (NEGATIVE); NITRITE,URINE NEGATIVE (NEGATIVE); OCCULT BLOOD,URINE NEGATIVE (NEGATIVE); PROTEIN,URINE NEGATIVE (NEGATIVE); UROBILINOGEN,URINE 0.2 EU/dL (<2.0)
[2022-08-28 13:30] LABS: AMPHETAMINES SCREEN, URINE NEGATIVE (CUTOFF=500); BARBITURATE SCREEN,URINE NEGATIVE (CUTOFF=200); BENZODIAZEPINES SCREEN,URINE NEGATIVE (CUTOFF=150); BUPRENORPHINE SCREEN,URINE NEGATIVE (CUTOFF=10); METHADONE SCREEN, URINE NEGATIVE (CUTOFF=200); METHAMPHETAMINES SCREEN, URINE NEGATIVE (CUTOFF=500); OXYCODONE SCREEN,URINE NEGATIVE (CUT0FF=100); PCP SCREEN,URINE NEGATIVE (CUTOFF=25); PROPOXYPHENE SCREEN,URINE NEGATIVE (CUTOFF=300); THC SCREEN,URINE 20 NG/ML PRESUMPTIVE POSITIVE (CUTOFF=50)
[2022-08-28 14:32] VITALS: BP 160/95; PULSE 79
== END 2022-08-28 14:31 | disposition home or self-care (01) ==
LOC: MW.ED 10:56
DX: F19.130 Other psychoactive substance abuse with withdrawal, uncomplicated (principal); Z88.0 Allergy status to penicillin
CPT/HCPCS: 36415; 80053; 80305; 80307; 81003; 84443; 85025; 93005; 96361; 96374; 99284; J2060; J7030

== ENCOUNTER 2022-09-04 08:50 | Emergency (ER) | payer OTHER ==
[2022-09-04] MEDS ORDERED: Lactated Ringers 1,000 ML IV ONE ×2 (09:03→11:22)
[2022-09-04] MEDS ORDERED: Ondansetron 4 MG/2 ML SDV IVPUSH ONE (09:04)
[2022-09-04 09:46] LABS: BASOPHILS PERCENT AUTO 0.4 % (0.0-1.5); EOSINOPHILS ABSOLUTE AUTO 0.1 K/uL (0.0-0.7); EOSINOPHILS PERCENT AUTO 1.1 % (0.0-7.0); HEMATOCRIT 51.9 % (38.0-50.0); HEMOGLOBIN 17.9 g/dL (13.0-17.0); LYMPHOCYTES ABSOLUTE AUTO 1.6 K/uL (0.6-2.4); LYMPHOCYTES PERCENT AUTO 21.7 % (16.0-40.0); MEAN CORPUSCULAR HEMOGLOBIN 29.5 pg (27.0-32.0); MEAN CORPUSCULAR HGB CONC 34.5 g/dL (31.0-37.0); MEAN CORPUSCULAR VOLUME 85.6 fL (80.0-98.0); MONOCYTES ABSOLUTE AUTO 0.7 K/uL (0.0-0.8); MONOCYTES PERCENT AUTO 9.2 % (0.0-15.0); NEUTROPHILS ABSOLUTE AUTO 4.8 K/uL (1.4-5.7); NEUTROPHILS PERCENT AUTO 67.6 % (48.0-80.0); NRBC ABSOLUTE 0 K/uL; PLATELET COUNT,PLT 181 K/uL (150-400); RED BLOOD CELL COUNT 6.06 M/uL (4.50-5.90); WHITE BLOOD CELL COUNT,WBC 7.15 K/uL (4.0-11.0)
[2022-09-04 09:48] LABS: APPEARANCE,URINE CLEAR; COLOR,URINE YELLOW; GLUCOSE,URINE NEGATIVE (NEGATIVE); KETONES,URINE >=80 mg/dL (NEGATIVE); LEUKOCYTE ESTERASE,URINE NEGATIVE (NEGATIVE); NITRITE,URINE NEGATIVE (NEGATIVE); OCCULT BLOOD,URINE NEGATIVE (NEGATIVE); PH,URINE 5.5 (5.0-8.0); PROTEIN,URINE NEGATIVE (NEGATIVE); UROBILINOGEN,URINE 0.2 EU/dL (<2.0)
[2022-09-04 09:55] LABS: AMPHETAMINES SCREEN, URINE NEGATIVE (CUTOFF=500); BARBITURATE SCREEN,URINE NEGATIVE (CUTOFF=200); BENZODIAZEPINES SCREEN,URINE PRESUMPTIVE POSITIVE (CUTOFF=150); BUPRENORPHINE SCREEN,URINE NEGATIVE (CUTOFF=10); METHADONE SCREEN, URINE NEGATIVE (CUTOFF=200); METHAMPHETAMINES SCREEN, URINE NEGATIVE (CUTOFF=500); OXYCODONE SCREEN,URINE NEGATIVE (CUT0FF=100); PCP SCREEN,URINE NEGATIVE (CUTOFF=25); PROPOXYPHENE SCREEN,URINE NEGATIVE (CUTOFF=300); THC SCREEN,URINE 20 NG/ML PRESUMPTIVE POSITIVE (CUTOFF=50)
[2022-09-04] MEDS ORDERED: Famotidine 20 MG Tab PO ONE (09:56)
[2022-09-04] MEDS ORDERED: Aluminum Hydroxide/Magnesium Hydroxide/Simethicone XS Susp 30 ML Cup PO ONE (09:56)
[2022-09-04] MEDS ORDERED: Pantoprazole 40 MG in Sodium Chloride 0.9% 10 ML IVPUSH ONE (09:57)
[2022-09-04] MEDS ORDERED: LORazepam 2 MG/ML SDV IVPUSH ONE (09:57)
[2022-09-04 10:03] LABS: BILIRUBIN,URINE SMALL (NEGATIVE)
[2022-09-04 10:27] LABS: A/G RATIO 1.5 (0.9-1.6); ACETAMINOPHEN <2.0 ug/mL; ALANINE AMINOTRANSFERASE,ALT 74 IU/L (14-63); ALBUMIN 4.6 g/dL (3.4-5.0); ALKALINE PHOSPHATASE 100 U/L (46-116); ASPARTATE AMNIOTRANSFERASE,AST 32 IU/L (15-37); BILIRUBIN TOTAL 0.6 mg/dL (0.2-1.0); BLOOD UREA NITROGEN,BUN 15 mg/dL (7.0-18.0); CALCIUM 9.4 mg/dL (8.5-10.1); CARBON DIOXIDE,CO2 30.1 mmol/L (21.0-32.0); CHLORIDE,CL 102 mmol/L (98-107); EST CRCL DRUG DOSING (CG) 124.44 mL/min; ESTIMATED GFR 103 mL/min (>60); ETHANOL BLOOD MEDICAL <3 mg/dL; GLUCOSE RANDOM 134 mg/dL (74-106); LIPASE 41 U/L (73-393); MAGNESIUM 2.1 mg/dL (1.8-2.4); POTASSIUM,K 4.4 mmol/L (3.5-5.1); PROTEIN TOTAL,TP 7.7 g/dL (6.4-8.2); SALICYLATE 1.3 mg/dL (0.0-20.0); SODIUM,NA 139 mmol/L (136-148)
[2022-09-04] MEDS ORDERED: LORazepam 0.5 MG Tab PO ONE (11:21)
[2022-09-04] MEDS ORDERED: hydrOXYzine Pamoate 25 MG Cap PO ONE (11:22)
[2022-09-06 08:13] VITALS: BP 138/89; PULSE 72
== END 2022-09-04 13:19 | disposition home or self-care (01) ==
LOC: MW.ED 08:50
DX: F19.239 Other psychoactive substance dependence with withdrawal, unspecified (principal); Z88.0 Allergy status to penicillin
CPT/HCPCS: 36415; 80053; 80143; 80179; 80305; 80307; 81003; 83690; 83735; 85025; 93005; 96361; 96374; 96375; 96376; 99284; A9270; C9113; J2060; J2405; J3490; J7120; 93010

== ENCOUNTER 2024-11-24 18:13 | Emergency (ER) | payer OTHER ==
[2024-11-24 18:27] VITALS: BP 143/99; PULSE 76
[2024-11-24] MEDS: Ondansetron 4 MG/2 ML SDV IVPUSH ONE (18:52)
[2024-11-24 19:01] LABS: BASOPHILS ABSOLUTE AUTO 0.02 K/uL (0.00-0.20); BASOPHILS PERCENT AUTO 0.4 % (0.0-1.0); EOSINOPHILS ABSOLUTE AUTO 0.15 K/uL (0.00-0.45); EOSINOPHILS PERCENT AUTO 3.0 % (0.0-6.0); IMMATURE GRAN ABSOLUTE AUTO 0.00 K/uL (0.00-0.05); IMMATURE GRAN PERCENT AUTO 0.0 % (0.0-0.4); LYMPHOCYTES ABSOLUTE AUTO 2.04 K/uL (1.00-4.80); LYMPHOCYTES PERCENT AUTO 41.2 % (24.0-44.0); MEAN PLATELET VOLUME 10.4 fL (9.4-12.4); MONOCYTES ABSOLUTE AUTO 0.48 K/uL (0.00-0.80); MONOCYTES PERCENT AUTO 9.7 % (0.0-8.0); NEUTROPHILS ABSOLUTE AUTO 2.26 K/uL (1.80-7.70); NEUTROPHILS PERCENT AUTO 45.7 % (41.0-71.0); NRBC ABSOLUTE 0.00 K/uL (0.00-0.02); NRBC PERCENT 0.0 /100WBC (0.0-0.2); PLATELET COUNT,PLT 145 K/uL (150-400); RED BLOOD CELL COUNT 5.00 M/uL (4.52-5.90); WHITE BLOOD CELL COUNT,WBC 4.95 K/uL (3.9-11.3)
[2024-11-24] MEDS: Iopamidol 755 MG/ML 500 ML Multipack Bottle IVPUSH ONE (19:18)
[2024-11-24 19:37] LABS: A/G RATIO 1.5 (0.9-1.6); ALANINE AMINOTRANSFERASE,ALT 44 IU/L (14-63); ASPARTATE AMNIOTRANSFERASE,AST 24 IU/L (15-37); BILIRUBIN TOTAL 0.3 mg/dL (0.2-1.0); BLOOD UREA NITROGEN,BUN 10 mg/dL (7.0-18.0); CARBON DIOXIDE,CO2 29.9 mmol/L (21.0-32.0); CHLORIDE,CL 104 mmol/L (98-107); CREATININE 0.9 mg/dL (0.8-1.3); GLUCOSE RANDOM 73 mg/dL (74-106); POTASSIUM,K 3.8 mmol/L (3.5-5.1); PROTEIN TOTAL,TP 6.5 g/dL (6.4-8.2); SODIUM,NA 143 mmol/L (136-148)
[2024-11-24 19:41] LABS: ESTIMATED GFR 115 mL/min (>60)
== END 2024-11-24 21:33 | disposition home or self-care (01) ==
LOC: MW.ED 18:13
DX: K60.2 Anal fissure, unspecified (principal); K21.9 Gastro-esophageal reflux disease without esophagitis; Z88.0 Allergy status to penicillin; Z79.899 Other long term (current) drug therapy
CPT/HCPCS: 36415; 74177; 80053; 85025; 96374; 96375; 99284; J1171; J2405; Q9967